=== PATIENT | female | born 1975 | race African-American/Black ===

== ENCOUNTER 2022-07-01 15:35 | Outpatient (CLI) | payer OTHER, SELFPAY ==
--- NOTE | ~2022-07-01 | MM_ITS ---
EXAMINATION: MM screening [facility] w jose HISTORY: Screening mammogram TECHNIQUE: Craniocaudal and mediolateral oblique 3-D tomosynthesis images were obtained and synthetic 2-D images were generated. CAD analysis was submitted and interpreted. COMPARISON: 02/13/2019 BREAST PARENCHYMAL COMPOSITION: There are scattered areas of fibroglandular density. FINDINGS: There is no suspicious mass, calcification, or architectural distortion to suggest malignan cy in either breast. There has been no suspicious interval change. IMPRESSION: 1. No mammographic evidence of malignancy. 2. Recommend routine screening mammography in one year. BI-RADS Category 1: Negative Reviewed, dictated and finalized at location A.
== END 2022-07-01 15:36 | disposition home or self-care (01) ==
LOC: ANHIMG 15:41
PROVIDERS: PCP Internal Medicine; Visit Provider Nurse Practitioner
DX: Z12.31 Encounter for screening mammogram for malignant neoplasm of breast (principal)
CPT/HCPCS: 77063; 77067

== ENCOUNTER 2024-02-01 13:30 | Emergency (ER) | payer OTHER, SELFPAY ==
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
[2024-02-01 13:28] VITALS: BP 180/98; PULSE 89; RESP 20; TEMP 36.6; O2SAT 96
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
== END 2024-02-01 15:00 | disposition home or self-care (01) ==
PROVIDERS: Emergency Provider Emergency Medicine
DX: S16.1XXA Strain of muscle, fascia and tendon at neck level, initial encounter (principal); S29.9XXA Unspecified injury of thorax, initial encounter; R93.7 Abnormal findings on diagnostic imaging of other parts of musculoskeletal system; V43.52XA Car driver injured in collision with other type car in traffic accident, initial encounter
CPT/HCPCS: 72125; 72128; 99284

== ENCOUNTER 2024-11-19 07:37 | Outpatient (CLI) | payer OTHER, SELFPAY ==
--- NOTE | ~2024-11-19 | MM_ITS ---
EXAMINATION: MM screening harley BI w jose HISTORY: Screening TECHNIQUE: Craniocaudal and mediolateral oblique 3-D tomosynthesis images were obtained and synthetic 2-D images were generated. CAD analysis was submitted and interpreted. COMPARISON: Comparison to multiple prior studies sequentially, with oldest reviewed study dated 02/13. BREAST PARENCHYMAL COMPOSITION: Not Dense: The breasts are almost entirely fatty. FINDINGS: There is no evidence of suspicious mass, calcification, or architectural distortion to sugg est malignancy in either breast. There has been no suspicious interval change. IMPRESSION: 1. No mammographic evidence of malignancy. 2. Recommend routine screening mammography in one year. BI-RADS Category 1: Negative Reviewed, dictated and finalized at location B. 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
--- OUTSIDE RECORDS SUMMARY | 2024-11-19 07:45 | XMS_ITS | Clinical Summary ---
Author Organization [facility] Address [address] [place] [address] Care Team Providers Care Cut In Worker Name Role Phone Janey Weathers MD Primary Care Provider + Source Comments [facility],non-owned Affiliates and Associated Physician Practices is amultiple site organization consisting of ambulatory clinics and hospital sitesin [place], [place], [place] and [place]. This disclosure is being madepursuant to the Care Everywhere program and may not contain all information available regarding this patient. Last updated 18.[facility] [employer] Allergies Active Allergy Reactions Criticality Noted Date Comments Lisinopril Swelling,Other 02/09/2019 Swelling of lips, tongue and ear. Medications * Be aware that medications may not be up to date on this document. Alwaysverify current medications with the patient. Medication Sig Dispensed Refills Start Date End Date Status metroNIDAZOLE vaginal (METROGEL - VAGINAL) 0.75 % vaginal gel Apply to affected area once as needed 3 01/04/2019 Active amLODIPine (NORVASC) 5 MG tablet Take 1 (one) tablet by mouth once daily 3 03/09/2019 Active calcium carbonate-vitamin D 600-400 MG-UNIT tablet Calcium with Vitamin D 600 mg (1,500 mg)-400 unit tablet Take 1 tablet twice a day by oral route. Active Multiple Vitamin (DAILY-MONICA MULTIVITAMIN) TABS Take 1 tablet by mouth once daily 11/20/2020 Active SLYND 4 MG TABS tablet Take 1 (one) tablet by mouth once daily 12/28/2020 Active hydroquinone (LUSTRA; ELDOQUIN) 4 % creamIndications:Post- inflammatory hyperpigmentation APPLY TO DARK SPOTS TWICE DAILY FOR NO MORE THAN 8 WEEKS, THEN 8 WEEKS OFF 28.35 g 12/25/2021 Active Additional Information Patient not taking.Reported on 07/21/2024 metroNIDAZOLE (Flagyl) 500 MG tablet TAKE 1 TABLET BY MOUTH EVERY 12 HOURS FOR 7 DAYS 04/22/2022 Active Cholecalciferol (Vitamin D3) 25 MCG (1000 UT) Take 1 (one) capsule by mouth once daily 04/23/2022 Active Multiple Vitamins-Minerals (Multivitamin Adults) TABS Take 1 tablet by mouth once daily 07/23/2022 Active fluocinolone-hydroquin one-tretinoin (Tri-Estephania) 0.01-4-0.05 % creamIndications:Post- inflammatory hyperpigmentation Apply to affected area nightly for up to 9 months of the year. 30 DS 30 g 3 08/14/2022 Active doxycycline monohydrate 100 MG capsuleIndications:Acn e vulgaris TAKE 1 CAPSULE BY MOUTH EVERY 12 HOURS 60 capsule 4 10/16/2022 Active Additional Information Patient not taking.Reported on 07/21/2024 tretinoin (Retin-A) 0.1 % creamIndications:Acne vulgaris APPLY PEA SIZED AMOUNT TOPICALLY TO FACE AT NIGHT 45 g 3 11/01/2022 Active Additional Information Patient not taking.Reported on 07/21/2024 clindamycin (Cleocin T) 1 % solution APPLY THIN LAYER TOPICALLY TO THE AFFECTED AREA TWICE DAILY 01/26/2024 Active tazarotene (Tazorac) 0.1 % creamIndications:Acne vulgaris Pea sized amount to entire face at night. 30 days supply. 30 g 5 02/11/2024 Active norethindrone 0.35 MG tablet Take 1 tablet every day by oral route. 07/21/2024 Active azelaic acid (Finacea) 15 % gelIndications:Acne vulgaris Apply to dark spots in am 50 g 5 07/21/2024 Active clindamycin (Cleocin) 1 % lotionIndications:Acne vulgaris Apply to affected area on face in the morning. 30 day supply. 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 Smoker 02/09/2019 Macromastia 02/05/2019 Benign essential hypertension 02/05/2019 Excessive sweating 02/05/2019 Nicotine dependence 02/05/2019 Obesity with body mass index 30 or greater 02/05 Resolved Problems Problem Noted Date Diagnosed Date Resolved Date Acute lower urinary tract infection 05/08/2022 05/22/2022 Family History Medical History Relation Name Comments None Known Brother Hypertension Father None Known Maternal Aunt None Known Maternal Grandfather None Known Maternal Grandmother None Known Maternal Uncle Hypertension Mother None Known Other None Known Paternal Aunt None Known Paternal Grandfather None Known Paternal Grandmother None Known Paternal Uncle None Known Sister Asthma Neg Hx CVA Neg Hx Cancer - Breast Neg Hx Cancer - Other Neg Hx Cancer - Skin, Melanoma Neg Hx Cancer - Skin, Non Melanoma Neg Hx Eczema Neg Hx Hemophilia Neg Hx Psoriasis Neg Hx Relation Name Status Comments Brother Father Alive Maternal Aunt Maternal Grandfather Maternal Grandmother Maternal Uncle Mother Alive Other Paternal Aunt Paternal Grandfather Paternal Grandmother Paternal Uncle Sister Social History Tobacco Use Types Packs/Day Years Used Date Smoking Tobacco: Every Day Cigarettes Smokeless Tobacco: Never Tobacco Cessation:Ready to Q uit: No; Counseling Given: Yes Alcohol Use Standard Drinks/Week Comments Yes 0 (1 standard drink = 0.6 oz pur e alcohol) Socially Sex and Gender Information Value Date Recorded Sex Assigned at Not on file Gender Identity Not on file Sexual Orientation Not on file Last Filed Vital Signs Vital Sign Reading Time Taken Comments Blood Pressure 168/85 02/09/2019 11:45 AM CDT Pulse 85 02/09/2019 11:45 AM CDT Temperature 37.1 C (98.7 F) 02/09/2019 11:45 AM CDT Respiratory Rate - - Oxygen Saturation 98% 02/09/2019 11:45 AM CDT Inhaled Oxygen Concentration - - Weight 82.8 kg (182 lb 9.6 oz) 02/09/2019 11:45 AM CDT Height 161.3 cm (5' 3.5 ) 02/09/2019 11:45 AM CD T Body Mass Index 31.84 02/09/2019 11:45 AM CDT Plan of Treatment Upcoming Encounters Date Type Department Care Team (Late st Contact Info) Description 05/25/2025 2:50 PM CDT [facility] [address] [place] [address], [place] [id number] Caryn Wheeler MD [facility] [address] [place] [id number] Health Maintenance Due Date Last Done Comments COLOGUARD (AGES 45-75) - COLON CA SCREENING 1976 COLON MONITORING 1976 COLONOSCOPY - COLON CA SCREENING 1976 CT COLONOGRAPHY - COLON CA SCREENING 1976 Colorectal Cancer Screening 1976 FIT - COLON CA SCREENING 1976 FLEX SIG - COLON CA SCREENING 1976 LIPID TESTING 1976 MAMMOGRAM 1976 HIV SCREENING 1991 HEPATITIS C SCREENING 11/17/1994 DTAP/TDAP/TD VACCINES (1 - Tdap) 1995 HEPATITIS B VACCINE (1 of 3 - 19+ 3-dose series) 1995 PNEUMOCOCCAL VACCINE (1 of 2 - PCV) 1995 COVID-19 VACCINE (1 - season) 2024 INFLUENZA VACCINE (#1) 2024 09/07/2014 DEPRESSION SCREENING 09/29/2024 ZOSTER VACCINE (1 of 2) 2026 PAP SMEAR 11/25/2026 11/25/2023, 09/0 02/2022, 04/16/2022, Additional history exists HIB VACCINE Aged Out No longer eligi ble based on patient's age to complete this topic HPV VACCINE Aged Out No longer eligi ble based on patient's age to complete this topic MENINGOCOCCAL (Group B) VACCINE Aged Out No longer eligible based on patient's age to complete this topic MENINGOCOCCAL VACCINE Aged Out No andrés michelle eligible based on patient's age to complete this topic Insurance Payer Benefit Plan / Group Subscriber ID Effective Dates Phone Address Type everyArt OPEN ACCESS HMO [id number] 06/29/2024-Pre sent [id number] [place] [address] [facility] MEDICAID [id number] Effective for all dates ATTN CLAIMS DEPARTMENT [address] [place] [address] Medicaid Managed Care [facility] MEDICAID [id number] Effective for all dates ATT[employer] CLAIMS DEPARTMENT [address] [place] [address] Medicaid Managed Care [facility] MEDICAID [id number] Effective for all dates ATTN CLAIMS DEPARTMENT [address] [place] [address] Medicaid Managed Care [facility] MEDICAID [id number] Effective for all dates ATTN CLAIMS DEPARTMENT [address] [place] [address] Medicaid Managed Care [facility] MEDICAID [id number] Effective for all dates ATTN CLAIMS DEPARTMENT [address] [place] [address] Medicaid Managed Care [facility] MEDICAID [id number] Effective for all dates ATTN CLAIMS DEPARTMENT [address] [place] [address] Medicaid Managed Care [facility] MEDICAID [id number] Effective for all dates ATTN CLAIMS DEPARTMENT [address] [place] [address] Medicaid Managed Care [facility] MEDICAID [id number] Effective for all dates ATTN CLAIMS DEPARTMENT [address] [place] [address] Medicaid Managed Care [facility] MEDICAID [id number] Effective for all dates ATTN CLAIMS DEPARTMENT [address] [place] [address] Medicaid Managed Care [facility] MEDICAID [id number] Effective for all dates ATTN CLAIMS DEPARTMENT [address] [place] [address] Medicaid Managed Care [facility] MEDICAID [id number] Effective for all dates ATTN CLAIMS DEPARTMENT [address] [place] [address] Medicaid Managed Care [facility] MEDICAID [id number] Effective for all dates ATTN CLAIMS DEPARTMENT [address] [place] [address] Medicaid Managed Care [facility] MEDICAID [id number] Effective for all dates ATTN CLAIMS DEPARTMENT [address] [place] [address] Medicaid Managed Care [facility] MEDICAID [id number] Effective for all dates ATTN CLAIMS DEPARTMENT [address] [place] [address] Medicaid Managed Care [facility] PL[facility] MEDICAID [id number] Effective for all dates ATTN CLAIMS DEPARTMENT [address] [place] [address] Medicaid Managed Care [facility] MEDICAID [id number] Effective for all dates ATTN CLAIMS DEPARTMENT [address] [place] [address] Medicaid Managed Care [facility] MEDICAID [id number] Effective for all dates ATTN CLAIMS DEPARTMENT [address] [place] [address] Medicaid Managed Care [facility] MEDICAID [id number] Effective for all dates ATTN CLAIMS DEPARTMENT [address] [place] [address] Medicaid Managed Care [facility] MEDICAID [id number] Effective for all dates ATTN CLAIMS DEPARTMENT [address] [place] [address] Medicaid Managed Care [facility] MEDICAID [id number] Effective for all dates ATTN CLAIMS DEPARTMENT [address] [place] [address] Medicaid Managed Care [facility] [place] [place] [facility] MEDICAID [id number] Effective for all dates ATTN CLAIMS DEPARTMENT [address] [place] [address] Medicaid Managed Care [facility] MEDICAID [id number] Effective for all dates ATTN CLAIMS DEPARTMENT [address] [place] [address] Medicaid Managed Care [facility] MEDICAID [id number] Effective for all dates ATT[employer] CLAIMS DEPARTMENT [address] [place] [address] Medicaid Managed Care [facility] MEDICAID [id number] Effective for all dates ATTN CLAIMS DEPARTMENT [address] [place] [address] Medicaid Managed Care [facility] MEDICAID [id number] Effective for all dates ATTN CLAIMS DEPARTMENT [address] [place] [address] Medicaid Managed Care [facility] MEDICAID [id number] Effective for all dates ATTN CLAIMS DEPARTMENT [address] [place] [address] Medicaid Managed Care [facility] MEDICAID [id number] Effective for all dates ATTN CLAIMS DEPARTMENT [address] [place] [address] Medicaid Managed Care [facility] MEDICAID [id number] Effective for all dates ATTN CLAIMS DEPARTMENT [address] [place] [address] Medicaid Managed Care [facility] MEDICAID [id number] Effective for all dates ATTN CLAIMS DEPARTMENT [address] [place] [address] Medicaid Managed Care [facility] MEDICAID [id number] Effective for all dates ATTN CLAIMS DEPARTMENT [address] [place] [address] Medicaid Managed Care [facility] MEDICAID [id number] Effective for all dates ATTN CLAIMS DEPARTMENT [address] [place] [address] Medicaid Managed Care [facility] MEDICAID [id number] Effective for all dates ATTN CLAIMS DEPARTMENT [address] [place] [address] Medicaid Managed Care [facility] MEDICAID [id number] Effective for all dates ATTN CLAIMS DEPARTMENT [address] [place] [address] Medicaid Managed Care [facility] MEDICAID [id number] Effective for all dates ATTN CLAIMS DEPARTMENT [address] [place] [address] Medicaid Managed Care [facility] MEDICAID [id number] Effective for all dates ATTN CLAIMS DEPARTMENT [address] [place] [address] Medicaid Managed Care [facility] MEDICAID [id number] Effective for all dates ATTN CLAIMS DEPARTMENT [address] [place] [address] Medicaid Managed Care [facility] MEDICAID [id number] Effective for all dates ATT[employer] CLAIMS DEPARTMENT 1 [address], [address] [place] [address] Medicaid Managed Care [facility] MEDICAID [id number] Effective for all dates ATTN CLAIMS DEPARTMENT 1 [facility] [address], [address] [place] [address] Medicaid Managed Care [facility] MEDICAID [id number] Effective for all dates ATTN CLAIMS DEPARTMENT 1 [facility] MARTI[address], [address] [place] [address] Medicaid Managed Care [facility] MEDICAID [id number] Effective for all dates ATTN CLAIMS DEPARTMENT 1 [facility] [address], [address] [place] [address] Medicaid Managed Care [facility] MEDICAID [id number] Effective for all dates ATTN CLAIMS DEPARTMENT 1 [facility] REGGIEI[address], [address] [place] [address] Medicaid Managed Care [facility] MEDICAID [id number] Effective for all dates ATTN CLAIMS DEPARTMENT 1 [facility] [address], [address] [place] [address] Medicaid Managed Care [facility] MEDICAID [id number] Effective for all dates ATTN CLAIMS DEPARTMENT 1 [facility], [address] [place] [address] Medicaid Managed Care [facility] MEDICAID [id number] Effective for all dates ATTN CLAIMS DEPARTMENT 1 [facility], [address] [place] [address] [facility] MEDICAID [id number] Effective for all dates ATTN CLAIMS DEPARTMENT 1 [facility], [address] [place] [address] Medicaid Managed Care [facility] MEDICAID [id number] Effective for all dates ATTN CLAIMS DEPARTMENT 1 [facility], [address] [place] [address] Medicaid Managed Care [facility] MEDICAID [id number] Effective for all dates ATTN CLAIMS DEPARTMENT 1 [facility], [address] [place] [address] Medicaid Managed Care [facility] MEDICAID [id number] Effective for all dates ATTN CLAIMS DEPARTMENT 1 [facility], [address] [place] [address] Medicaid Managed Care [facility] MEDICAID [id number] Effective for all dates ATTN CLAIMS DEPARTMENT 1 [facility], [address] [place] [address] Medicaid Managed Care [facility] MEDICAID [id number] Effective for all dates ATTN CLAIMS DEPARTMENT 1 [facility] [address], [address] [place] [address] Medicaid Managed Care [facility] MEDICAID [id number] Effective for all dates ATTN CLAIMS DEPARTMENT 1 [facility], [address] [place] [address] Medicaid Managed Care [facility] MEDICAID [id number] Effective for all dates ATTN CLAIMS DEPARTMENT 1 [facility], [address] [place] [address] Medicaid Managed Care [facility] MEDICAID [id number] Effective for all dates ATTN CLAIMS DEPARTMENT 1 [facility], [address] [place] [address] Medicaid Managed Care [facility] MEDICAID [id number] Effective for all dates ATTN CLAIMS DEPARTMENT 1 [facility], [address] [place] [address] [facility] MEDICAID [id number] Effective for all dates ATTN CLAIMS DEPARTMENT 1 [facility] [address], [address] [place] [address]aged [address] [facility] MEDICAID [id number] Effective for all dates ATTN CLAIMS DEPARTMENT 1 [facility] [address], [address] [place] [address] [facility] MEDICAID [id number] Effective for all dates ATTN CLAIMS DEPARTMENT 1 [facility] [address], [address] [place] [address] [facility] MEDICAID [id number] Effective for all dates ATTN CLAIMS DEPARTMENT 1 [facility] [address], [address] [place] [address] Medicaid Managed Care [facility] MEDICAID [id number] Effective for all dates ATTN CLAIMS DEPARTMENT 1 [facility] [address], [address] [place] [address] Medicaid Managed Care [facility] MEDICAID [id number] Effective for all dates ATTN CLAIMS DEPARTMENT 1 [facility], [address] [place] [address] Medicaid Managed Care [facility] MEDICAID [id number] Effective for all dates ATTN CLAIMS DEPARTMENT 1 [facility], [address] [place] [address] Medicaid Managed Care [facility] MEDICAID [id number] Effective for all dates ATTN CLAIMS DEPARTMENT 1 [facility], [address] [place] [address] [facility] MEDICAID [id number] Effective for all dates ATTN CLAIMS DEPARTMENT 1 [facility], [address] [place] [address] Medicaid Managed Care [facility] MEDICAID [id number] Effective for all dates ATTN CLAIMS DEPARTMENT 1 [facility], [address] [place] [address] [facility] MEDICAID [id number] Effective for all dates ATTN CLAIMS DEPARTMENT 1 [facility], [address] [place] [address] Medicaid Managed Care [facility] MEDICAID [id number] Effective for all dates ATTN CLAIMS DEPARTMENT 1 [facility], [address] [place] [address] [facility] MEDICAID [id number] Effective for all dates ATTN CLAIMS DEPARTMENT 1 [facility], [address] [place] [address] [facility] MEDICAID [id number] Effective for all dates ATTN CLAIMS DEPARTMENT 1 [facility] [address], [address] [place] [address] Medicaid Managed Care [facility] MEDICAID [id number] Effective for all dates ATTN CLAIMS DEPARTMENT 1 [facility] [place], [address] [place] [address] Medicaid Managed Care [facility] MEDICAID [id number] Effective for all dates ATTN CLAIMS DEPARTMENT 1 [facility], [address] [place] [address] Medicaid Managed Care [facility] MEDICAID [id number] Effective for all dates ATTN CLAIMS DEPARTMENT 1 [facility], [address] [place] [address] Medicaid Managed Care [facility] MEDICAID [id number] Effective for all dates ATTN CLAIMS DEPARTMENT 1 [facility] [address], [address] [place] [address] Medicaid Managed Care [facility] MEDICAID [id number] Effective for all dates ATTN CLAIMS DEPARTMENT 1 [facility], [address] [place] [address] Medicaid Managed Care [facility] MEDICAID [id number] Effective for all dates ATTN CLAIMS DEPARTMENT 1 [facility], [address] [place] [address] [facility] MEDICAID [id number] Effective for all dates ATTN CLAIMS DEPARTMENT 1 [facility], [address] [place] [address] Medicaid Managed Care [facility] MEDICAID [id number] Effective for all dates ATTN CLAIMS DEPARTMENT 1 [facility], [address] [place] [address] [facility] MEDICAID [id number] Effective for all dates ATTN CLAIMS DEPARTMENT 1 [facility], [address] [place] [address] Medicaid Managed Care [facility] MEDICAID [id number] Effective for all dates ATTN CLAIMS DEPARTMENT 1 [facility], [address] [place] [address] Medicaid Managed Care [facility] MEDICAID [id number] Effective for all dates ATTN CLAIMS DEPARTMENT 1 [facility], [address] [place] [address] Medicaid Managed Care [facility] MEDICAID [id number] Effective for all dates ATTN CLAIMS DEPARTMENT 1 [facility], [address] [place] [address] [facility] MEDICAID [id number] Effective for all dates ATTN CLAIMS DEPARTMENT 1 [facility], [address] [place] [address] [facility] MEDICAID [id number] Effective for all dates ATTN CLAIMS DEPARTMENT 1 [facility], [address] [place] [address] [facility] MEDICAID [id number] Effective for all dates ATTN CLAIMS DEPARTMENT 1 [facility], [address] [place] [address] [facility] MEDICAID [id number] Effective for all dates ATTN CLAIMS DEPARTMENT 1 [facility], [address] [place] [address] Medicaid [facility] Care [facility] MEDICAID [id number] Effective for all dates ATTN CLAIMS DEPARTMENT 1 [facility], [address] [place] [address] [facility] MEDICAID [id number] Effective for all dates ATTN CLAIMS DEPARTMENT 1 [facility], [address] [place] [address] [facility] MEDICAID [id number] Effective for all dates ATTN CLAIMS DEPARTMENT 1 [facility], [address] [place] [address] Medicaid [facility] Care [facility] MEDICAID [id number] Effective for all dates ATTN CLAIMS DEPARTMENT 1 [facility], [address] [place] [address] [facility] MEDICAID [id number] Effective for all dates ATTN CLAIMS DEPARTMENT 1 [facility], [address] [place] [address] Medicaid Managed Care [facility] MEDICAID [id number] Effective for all dates ATTN CLAIMS DEPARTMENT 1 [facility], [address] [place] [address] [facility] MEDICAID [id number] Effective for all dates ATTN CLAIMS DEPARTMENT 1 [facility], [address] [place] [address] [facility] MEDICAID [id number] Effective for all dates ATTN CLAIMS DEPARTMENT 1 [address], [address] [place] [address] [facility] MEDICAID [id number] Effective for all dates ATTN CLAIMS DEPARTMENT 1 [address], [address] [place] [address] Medicaid Managed Care [facility] MEDICAID [id number] Effective for all dates ATTN CLAIMS DEPARTMENT [address] [place] [place] [address] [facility] MEDICAID [id number] Effective for all dates ATTN CLAIMS DEPARTMENT [address], [place] [address] [place] [address] [facility] MEDICAID [id number] Effective for all dates ATTN CLAIMS DEPARTMENT [address], [facility] [address] [place] [address] Medicaid Managed Care Care Teams Cut In Worker Relationship Specialty Start Date End Date Janey Weathers MD PCP - General 08/06/16
--- OUTSIDE RECORDS SUMMARY | 2024-11-19 07:45 | XMS_ITS | Encounter Summary ---
Author Organization [facility] Address [address] [place] [address] Care Team Providers Care Shipping Clerk Name Role Phone Janey Weathers MD Primary Care Provider + Reason for Visit * Reason Onset Date Comments MEDICATION REFILL 10/07/2023 Encounter Details Date Type Department Care Team (Late st Contact Info) Description 10/07/2023 Telephone [facility] - General Dermatology [address], [address] [place] [address] Caryn Wheeler MD [address] [facility] [address] [place] [address] MEDICATION REFILL Social History Tobacco Use Types Packs/Day Years Used Date Smoking Tobacco: Every Day Cigarettes Smokeless Tobacco: Never Alcohol Use Standard Drinks/Week Comments Yes 0 (1 standard drink = 0.6 oz pur e alcohol) Socially Sex and Gender Information Value Date Recorded Sex Assigned at Not on file Gender Identity Not on file Sexual Orientation Not on file documented as of this encounter Progress Notes * Susie Katz - 04/07/2024 12:27 PM CDT Medication Prior Authorization: Medication: Tazorac 0.1% cream 30 grams Status: Approved 02/19/24 through 08/17/24 Submitted via: Cover My Meds (Aldana: [id number]) Insurance: [facility] (p: [phone]) (f: [phone]) Case/Reference number: ID: [id number] RX Card Billing Info: BIN: [id number] PCN: [id number] GROUP: [id number] ID: [id number] PA approval notice uploaded to media tab. Faxed approval to [facility] pharmacy. Susie Katz- Pharmacy Dental Ceramist Assistant (Dermatology) documented in this encounter Miscellaneous Notes * Telephone Encounter - Susie Katz - 02/19/2024 2:59 PM CDT PA submitted fornew start Tazarotene 0.1% cream 30 grams per 30 days [place] on decision. Aldana: [id number] Provider:[id number] Susie Katz ([place]) [facility] - Pharmacy Dental Ceramist Assistant * Telephone Encounter - Germán Anguiano - 10/09/2023 4:46 PM FENCE LABORER Left message for refill appointment: 02/11/24 at 3:50. E LABORER * Telephone Encounter - Sonali Pelletier - 10/08/2023 2:28 PM CST Per last refill request, patient needs an appointment for further refills Please schedule Sonali Pelletier E LABORER * Telephone Encounter - Hugh Blackmon - 10/07/2023 12:40 PM CST Pharmacy called in regards to medication tretinoin (Retin-A) 0.1 % cream for a refill request from the pt. Please assist and advise. E LABORER documented in this encounter Plan of Treatment Upcoming Encounters Date Type Department Care Team (Late st Contact Info) Description 05/25/2025 2:50 PM CDT Office Visit [facility] - Dermatology [address] [place] [address], [place] [address] Caryn Wheeler MD [address] [place] [address] [address] [place] [address] documented as of this encounter Visit Diagnoses Not on filedocumented in this encounter Care Teams Shipping Clerk Relationship Specialty Start Date End Date Janey Weathers MD PCP - General 08/06/16 documented as of this encounter
--- OUTSIDE RECORDS SUMMARY | 2024-11-19 07:45 | XMS_ITS | Patient Health Summary ---
Author Organization [facility] Address [address] [place] [address] Care Team Providers Care Lens Shaper Grinder Name Role Phone Janey Weathers MD Primary Care Provider + Note from [facility],non-owned Affiliates and Associated Physician Practices is amultiple site organization consisting of ambulatory clinics and hospital sitesin [place], [place], [place] and [place]. This disclosure is being madepursuant to the Care Everywhere program and may not contain all information available regarding this patient. Last updated 18.[facility] Allergies * Lisinopril(Swelling,Other) Medications * Be aware that medications may not be up to date on this document. Alwaysverify current medications with the patient. * metroNIDAZOLE vaginal (METROGEL - VAGINAL) 0.75 % vaginal gel(Started 01/04/2019) Apply to affected area once as needed 3 refills left * amLODIPine (NORVASC) 5 MG tablet(Started 03/09/2019) Take 1 (one) tablet by mouth once daily 3 refills left * calcium carbonate-vitamin D 600-400 MG-UNIT tablet Calcium with Vitamin D 600 mg (1,500 mg)-400 unit tablet Take 1 tablet twice a day by oral route. * Multiple Vitamin (DAILY-MONICA MULTIVITAMIN) TABS(Started 11/20/2020) Take 1 tablet by mouth once daily * SLYND 4 MG TABS tablet(Started 12/28/2020) Take 1 (one) tablet by mouth once daily * hydroquinone (LUSTRA; ELDOQUIN) 4 % cream(Started 12/25/2021) APPLY TO DARK SPOTS TWICE DAILY FOR NO MORE THAN 8 WEEKS, THEN 8 WEEKS OFF * metroNIDAZOLE (Flagyl) 500 MG tablet(Started 04/22/2022) TAKE 1 TABLET BY MOUTH EVERY 12 HOURS FOR 7 DAYS * Cholecalciferol (Vitamin D3) 25 MCG (1000 UT)(Started 04/23/2022) Take 1 (one) capsule by mouth once daily * Multiple Vitamins-Minerals (Multivitamin Adults) TABS(Started 07/23/2022) Take 1 tablet by mouth once daily * mgcytzdptaxk-osaoeuufuabb-ujwqbtwwq (Tri-Estephania) 0.01-4-0.05 % cream(Started 08/14/2022) Apply to affected area nightly for up to 9 months of the year. 30 DS 3 refills by 08/14/2023 * doxycycline monohydrate 100 MG capsule(Started 10/16/2022) TAKE 1 CAPSULE BY MOUTH EVERY 12 HOURS 4 refills by 10/16/2023 * tretinoin (Retin-A) 0.1 % cream(Started 11/01/2022) APPLY PEA SIZED AMOUNT TOPICALLY TO FACE AT NIGHT 3 refills by 11/01/2023 * clindamycin (Cleocin T) 1 % solution(Started 01/26/2024) APPLY THIN LAYER TOPICALLY TO THE AFFECTED AREA TWICE DAILY * tazarotene (Tazorac) 0.1 % cream(Started 02/11/2024) Pea sized amount to entire face at night. 30 days supply. 5 refills by 02/10/2025 * norethindrone 0.35 MG tablet(Started 07/21/2024) Take 1 tablet every day by oral route. * azelaic acid (Finacea) 15 % gel(Started 07/21/2024) Apply to dark spots in am 5 refills by 07/21/2025 * clindamycin (Cleocin) 1 % lotion(Started 07/21/2024) Apply to affected area on face in the morning. 30 day supply. 5 refills by 07/21/2025 * spironolactone (Aldactone) 100 MG tablet(Started 07/21/2024) Take One and a Half tablets (150mg daily) BY MOUTH EVERY DAY 3 refills by 07/21/2025 Active Problems Problem Noted Date Diagnosed Date [...] Acute lower urinary tract infection 05/08/2022 05/22/2022 Social History Tobacco Use Types Packs/Day Years [...] Mass Index 31.84 02/09/2019 11:45 AM CDT Care Teams Lens Shaper Grinder Relationship Specialty Start Date End Date Janey Weathers MD PCP - General 08/06/16
--- OUTSIDE RECORDS SUMMARY | 2024-11-19 07:45 | XMS_ITS | Referral Summary ---
Author Organization [facility] Address [address] [place] [address] Care Team Providers Care Coper Hand Name Role Phone Janey Weathers MD Primary Care Provider + Source Comments [facility],non-owned Affiliates and Associated Physician Practices is amultiple site organization consisting of ambulatory clinics and hospital sitesin [place], [place]. This disclosure is being madepursuant to the Care Everywhere program and may not contain all information available regarding this patient. Last updated 18.[facility] [employer] Allergies Active Allergy Reactions Criticality Noted Date [...] Office Visit [facility] - Dermatology [address] [place] [address], [facility] [place] [id number] Caryn Wheeler MD [address] [place] [address] [address] [place] [address] Insurance Payer Benefit Plan / Group Subscriber ID Effective Dates Phone Address Type [employer] HEALTHLINK OPEN ACCESS O [id number] 06/29/2024-Pre sent [address] [place] [address] O [facility] MEDICAID [id number] Effective for all dates [employer] CLAIMS DEPARTMENT [address] [place] [address] Medicaid Managed Care [facility] MEDICAID [id number] Effective for all dates ATT[employer] CLAIMS DEPARTMENT [address] [place] [address] Medicaid Managed Care [facility] MEDICAID [id number] Effective for all dates ATT[employer] CLAIMS DEPARTMENT [address] [place] [address] Medicaid Managed Care [facility] MEDICAID [id number] Effective for all dates ATT[employer] CLAIMS DEPARTMENT [address] [place] [address] Medicaid Managed Care [facility] MEDICAID [id number] Effective for all dates ATT[employer] CLAIMS DEPARTMENT [address] [place] [address] Medicaid Managed Care [facility] MEDICAID [id number] Effective for all dates ATT[employer] CLAIMS DEPARTMENT [address] [place] [address] Medicaid Managed Care [facility] MEDICAID [id number] Effective for all dates ATTN CLAIMS DEPARTMENT [address] [place] [address] Medicaid Managed Care [facility] MEDICAID [id number] Effective for all dates ATTN CLAIMS DEPARTMENT [address] [place] [address] Medicaid Managed Care [facility] MEDICAID [id number] Effective for all dates ATTN CLAIMS DEPARTMENT [address] [place] [address] Medicaid Managed Care [facility] MEDICAID [id number] Effective for all dates ATT[employer] CLAIMS DEPARTMENT [address] [place] [address] Medicaid Managed Care [facility] MEDICAID [id number] Effective for all dates ATTN CLAIMS DEPARTMENT [address] [place] [address] Medicaid Managed Care [facility] MEDICAID [id number] Effective for all dates ATTN CLAIMS DEPARTMENT [address] [place] [address] Medicaid Managed Care [facility] MEDICAID [id number] Effective for all dates ATTN CLAIMS DEPARTMENT [address] [place] [address] Medicaid Managed Care [facility] MEDICAID [id number] Effective for all dates ATTN CLAIMS DEPARTMENT [address] [place] [address] Medicaid Managed Care [facility] MEDICAID [id number] Effective for all dates ATTN CLAIMS DEPARTMENT [address] [place] [address] Medicaid Managed Care [facility] MEDICAID [id number] Effective for all dates ATTN CLAIMS DEPARTMENT [address] [place] [address] Medicaid Managed Care [facility] MEDICAID [id number] Effective for all dates ATTN CLAIMS DEPARTMENT [address] [place] [address] Medicaid Managed Care [facility] MEDICAID [id number] Effective for all dates ATTN CLAIMS DEPARTMENT [address] [place] [address] Medicaid Managed Care [facility] MEDICAID [id number] Effective for all dates ATTN CLAIMS DEPARTMENT [address] [place] [address] Medicaid Managed Care [facility] MEDICAID [id number] Effective for all dates ATT[employer] CLAIMS DEPARTMENT [address] [place] [address] Medicaid Managed Care [facility] MEDICAID [id number] Effective for all dates ATTN CLAIMS DEPARTMENT [address] [place] [address] Medicaid Managed Care [facility] MEDICAID [id number] Effective for all dates ATTN CLAIMS DEPARTMENT [address] [place] [address] Medicaid Managed Care [facility] MEDICAID [id number] Effective for all dates ATTN CLAIMS DEPARTMENT [address] [place] [address] Medicaid Managed Care [facility] MEDICAID [id number] Effective for all dates ATTN CLAIMS DEPARTMENT [address] [place] [address] Medicaid Managed Care [facility] MEDICAID [id number] Effective for all dates ATTN CLAIMS DEPARTMENT [address] [place] [address] Medicaid Managed Care [facility] MEDICAID [id number] Effective for all dates ATTN CLAIMS DEPARTMENT [address] [place] [address] Medicaid Managed Care [facility] MEDICAID [id number] Effective for all dates ATTN CLAIMS DEPARTMENT [address] [place] [address] Medicaid Managed Care [facility] MEDICAID [id number] Effective for all dates ATTN CLAIMS DEPARTMENT [address] [place] [address] Medicaid Managed Care [facility] MEDICAID [id number] Effective for all dates ATTN CLAIMS DEPARTMENT [address] [place] [address] Medicaid Managed Care [facility] MEDICAID [id number] Effective for all dates ATTN CLAIMS DEPARTMENT [address] [place] [address] Medicaid Managed Care [facility] [place] [facility] MEDICAID [id number] Effective for all dates ATTN CLAIMS DEPARTMENT [address] [place] [address] Medicaid Managed Care [facility] MEDICAID [id number] Effective for all dates ATTN CLAIMS DEPARTMENT [address] [place] [address] Medicaid Managed Care [facility] MEDICAID [id number] Effective for all dates ATTN CLAIMS DEPARTMENT [address] [place] [address] Medicaid Managed Care [facility] MEDICAID [id number] Effective for all dates ATTN CLAIMS DEPARTMENT [address] [place] [address] Medicaid Managed Care [facility] MEDICAID [id number] Effective for all dates ATTN CLAIMS DEPARTMENT [address] [place] [address] Medicaid Managed Care [facility] MEDICAID [id number] Effective for all dates ATTN CLAIMS DEPARTMENT [address] [place] [address] Medicaid Managed Care [facility] MEDICAID [id number] Effective for all dates ATTN CLAIMS DEPARTMENT 1 [facility] [address] [place] [address] Medicaid Managed Care [facility] MEDICAID [id number] Effective for all dates ATTN CLAIMS DEPARTMENT 1 [facility], [address] [place] [address] Medicaid Managed Care [facility] MEDICAID [id number] Effective for all dates ATTN CLAIMS DEPARTMENT 1 [facility], [address] [place] [address] Medicaid Managed Care [facility] MEDICAID [id number] Effective for all dates ATTN CLAIMS DEPARTMENT 1 [facility] [address], [address] [place] [address] Medicaid Managed Care [facility] MEDICAID [id number] Effective for all dates ATTN CLAIMS DEPARTMENT 1 [facility], [address] [place] [address] Medicaid Managed Care [facility] MEDICAID [id number] Effective for all dates ATTN CLAIMS DEPARTMENT 1 [facility], [address] [place] [address] Medicaid Managed Care [facility] MEDICAID [id number] Effective for all dates ATTN CLAIMS DEPARTMENT 1 [facility], [address] [place] [address] Medicaid Managed Care [facility] MEDICAID [id number] Effective for all dates ATTN CLAIMS DEPARTMENT 1 [facility], [address] [place] [address] Medicaid Managed Care [facility] MEDICAID [id number] Effective for all dates ATTN CLAIMS DEPARTMENT 1 [facility], [address] [place] [address] Medicaid Managed Care [facility] MEDICAID [id number] Effective for all dates ATTN CLAIMS DEPARTMENT 1 [facility], [address] [place] [address] Medicaid Managed Care [facility] MEDICAID [id number] Effective for all dates ATTN CLAIMS DEPARTMENT 1 [facility], [address] [place] [address] Medicaid Managed Care [facility] MEDICAID [id number] Effective for all dates ATTN CLAIMS DEPARTMENT 1 [facility], [address] [place] [address] Medicaid Managed Care [facility] MEDICAID [id number] Effective for all dates ATTN CLAIMS DEPARTMENT 1 [facility], [address] [place] [address] Medicaid Managed Care [facility] MEDICAID [id number] Effective for all dates ATTN CLAIMS DEPARTMENT 1 [facility], [address] [place] [address] Medicaid Managed Care [facility] MEDICAID [id number] Effective for all dates ATTN CLAIMS DEPARTMENT 1 [facility], [address] [place] [address] Medicaid Managed Care [facility] MEDICAID [id number] Effective for all dates ATTN CLAIMS DEPARTMENT 1 [facility], [address] [place] [address] Medicaid Managed Care [facility] MEDICAID [id number] Effective for all dates ATTN CLAIMS DEPARTMENT 1 [facility], [address] [place] [address] Medicaid Managed Care [facility] MEDICAID [id number] Effective for all dates ATTN CLAIMS DEPARTMENT 1 [facility], [address] [place] [address] Medicaid Managed Care [facility] MEDICAID [id number] Effective for all dates ATTN CLAIMS DEPARTMENT 1 [facility], [address] [place] [address] Medicaid Managed Care [facility] MEDICAID [id number] Effective for all dates ATTN CLAIMS DEPARTMENT 1 [facility], [address] [place] [address] Medicaid Managed Care [facility] MEDICAID [id number] Effective for all dates ATTN CLAIMS DEPARTMENT 1 [facility], [address] [place] [address] Medicaid Managed Care [facility] MEDICAID [id number] Effective for all dates ATTN CLAIMS DEPARTMENT 1 [facility], [address] [place] [address] Medicaid Managed Care [facility] MEDICAID [id number] Effective for all dates ATTN CLAIMS DEPARTMENT 1 [facility], [address] [place] [address] Medicaid Managed Care [facility] MEDICAID [id number] Effective for all dates ATTN CLAIMS DEPARTMENT 1 [facility], [address] [place] [address] Medicaid Managed Care [facility] MEDICAID [id number] Effective for all dates ATTN CLAIMS DEPARTMENT 1 [facility], [address] [place] [address] Medicaid Managed Care [facility] MEDICAID [id number] Effective for all dates ATTN CLAIMS DEPARTMENT 1 [facility], [address] [place] [address] Medicaid Managed Care [facility] MEDICAID [id number] Effective for all dates ATTN CLAIMS DEPARTMENT 1 [facility], [address] [place] [address] Medicaid Managed Care [facility] MEDICAID [id number] Effective for all dates ATTN CLAIMS DEPARTMENT 1 [facility], [address] [place] [address] Medicaid Managed Care [facility] MEDICAID [id number] Effective for all dates ATTN CLAIMS DEPARTMENT 1 [facility], [address] [place] [address] Medicaid Managed Care [facility] MEDICAID [id number] Effective for all dates ATTN CLAIMS DEPARTMENT 1 [facility], [address] [place] [address] Medicaid Managed Care [facility] MEDICAID [id number] Effective for all dates ATTN CLAIMS DEPARTMENT 1 [facility], [address] [place] [address] Medicaid Managed Care [facility] MEDICAID [id number] Effective for all dates ATTN CLAIMS DEPARTMENT 1 [facility], [address] [place] [address] Medicaid Managed Care [facility] MEDICAID [id number] Effective for all dates ATTN CLAIMS DEPARTMENT 1 [facility], [address] [place] [address] Medicaid Managed Care [facility] MEDICAID [id number] Effective for all dates ATTN CLAIMS DEPARTMENT 1 [facility], [address] [place] [address] Medicaid Managed Care [facility] MEDICAID [id number] Effective for all dates ATTN CLAIMS DEPARTMENT 1 [facility], [address] [place] [address] Medicaid Managed Care [facility] MEDICAID [id number] Effective for all dates ATTN CLAIMS DEPARTMENT 1 [facility], [address] [place] [address] Medicaid Managed Care [facility] MEDICAID [id number] Effective for all dates ATTN CLAIMS DEPARTMENT 1 [facility], [address] [place] [address] Medicaid Managed Care [facility] MEDICAID [id number] Effective for all dates ATTN CLAIMS DEPARTMENT 1 [facility], [address] [place] [address] Medicaid Managed Care [facility] MEDICAID [id number] Effective for all dates ATTN CLAIMS DEPARTMENT 1 [facility], [address] [place] [address] Medicaid Managed Care [facility] MEDICAID [id number] Effective for all dates ATTN CLAIMS DEPARTMENT 1 [facility], [address] [place] [address] Medicaid Managed Care [facility] MEDICAID [id number] Effective for all dates ATTN CLAIMS DEPARTMENT 1 [facility], [address] [place] [address] Medicaid Managed Care [facility] MEDICAID [id number] Effective for all dates ATTN CLAIMS DEPARTMENT 1 [facility], [address] [place] [address] Medicaid Managed Care [facility] MEDICAID [id number] Effective for all dates ATTN CLAIMS DEPARTMENT 1 [facility], [address] [place] [address] Medicaid Managed Care [facility] MEDICAID [id number] Effective for all dates ATTN CLAIMS DEPARTMENT 1 [facility], [address] [place] [address] Medicaid Managed Care [facility] MEDICAID [id number] Effective for all dates ATTN CLAIMS DEPARTMENT 1 [facility], [address] [place] [address] Medicaid Managed Care [facility] MEDICAID [id number] Effective for all dates ATTN CLAIMS DEPARTMENT 1 [facility], [address] [place] [address] Medicaid Managed Care [facility] MEDICAID [id number] Effective for all dates ATTN CLAIMS DEPARTMENT 1 [facility], [address] [place] [address] Medicaid Managed Care [facility] MEDICAID [id number] Effective for all dates ATTN CLAIMS DEPARTMENT 1 [facility], [address] [place] [address] Medicaid Managed Care [facility] MEDICAID [id number] Effective for all dates ATTN CLAIMS DEPARTMENT 1 [facility], [address] [place] [address] Medicaid Managed Care [facility] MEDICAID [id number] Effective for all dates ATTN CLAIMS DEPARTMENT 1 [facility], [address] [place] [address] Medicaid Managed Care [facility] MEDICAID [id number] Effective for all dates ATTN CLAIMS DEPARTMENT 1 [facility], [address] [place] [address] Medicaid Managed Care [facility] MEDICAID [id number] Effective for all dates ATTN CLAIMS DEPARTMENT 1 [facility], [address] [place] [address] Medicaid Managed Care [facility] MEDICAID [id number] Effective for all dates ATTN CLAIMS DEPARTMENT 1 [facility], [address] [place] [address] Medicaid Managed Care [facility] MEDICAID [id number] Effective for all dates ATTN CLAIMS DEPARTMENT 1 [facility], [address] [place] [address] Medicaid Managed Care [facility] MEDICAID [id number] Effective for all dates ATTN CLAIMS DEPARTMENT 1 [facility], [address] [place] [address] Medicaid Managed Care [facility] MEDICAID [id number] Effective for all dates ATTN CLAIMS DEPARTMENT 1 [facility], [address] [place] [address] Medicaid Managed Care [facility] MEDICAID [id number] Effective for all dates ATTN CLAIMS DEPARTMENT 1 [facility], [address] [place] [address] Medicaid Managed Care [facility] MEDICAID [id number] Effective for all dates ATTN CLAIMS DEPARTMENT 1 [facility], [address] [place] [address] Medicaid Managed Care [facility] MEDICAID [id number] Effective for all dates ATTN CLAIMS DEPARTMENT 1 [place] [facility] [place], [address] [place] [address] Medicaid Managed Care [facility] MEDICAID [id number] Effective for all dates ATTN CLAIMS DEPARTMENT 1 [place] [facility], [facility] [address] [place] [address] Medicaid Managed Care Care Teams Coper Hand Relationship Specialty Start Date End Date Janey Weathers MD PCP - General 08/06/16
--- OUTSIDE RECORDS SUMMARY | 2024-11-19 07:45 | XMS_ITS | Data Portability ---
Author Organization EDDA Tano HARMON Address [address] [facility] [place] [address] Assessment No assessment recorded. Plan of Treatment Reminders Order Date Submit Date Provider Last Modified By Organization Details Last Modified Time Details Appointments None recorded . Lab culture, urine 2020 021 [facility], [address] [place] [address], [address], [place], [address], 16:30:21 hepatiti s C Ab, signal-t o-cutoff , serum or plasma [address] [facility], [address], [place], [address], 1 12:34:39 HIV 1+2 AB + HIV 1 p24 Ag, qualitat jimi immunoas say, serum 2018 019 mayda [facility], [address], [place], [address], 12:34:39 CMP, serum or plasma 2018 019 [email or web address] [facility], [address], [place], [address], 9 16:48:12 CBC w/ auto diff 2018 019 [email or web address] [facility], [address], [place], [address], 0 09:49:25 urinalys is, complete [address] [facility], [address], [place], [address], 1 12:34:39 lipid panel, serum 2018 019 [facility], [address], [place], [address], 0 09:49:25 unlisted lab - TSH reflex to t4f 2018 019 mayda [facility], [address], [place], [address], 1 12:34:39 HbA1c (hemoglo bin A1c), blood 2018 019 [facility], [address], [place], [address], 0 09:49:25 urinalys is, dipstick 2015 016 [id number] [id number] In-Office Order, Internal Use Only DO Not Attach Compendium DO Not Attach Compendium, Do Not Delete/merge, [id number] 6 04:30:05 microalb umin, urine 2015 016 [email or web address] [id number] In-Office Order, Internal Use Only DO Not Attach Compendium DO Not Attach Compendium, Do Not Delete/merge, [id number] 6 04:30:27 culture, urine 2015 016 I[facility], [address], [address], [place], [address], 6 06:05:36 pregnanc y test, urine 2015 016 mayda In-Office Order, Internal Use Only DO Not Attach Compendium DO Not Attach Compendium, Do Not Delete/merge, [id number] 6 17:47:22 urinalys is, dipstick 2015 Sade ohara In-Office Order, Internal Use Only DO Not Attach Compendium DO Not Attach Compendium, Do Not Delete/merge, [id number] 6 17:47:22 dhea-sul fate, serum 2015 016 [facility], [address], [address], [place], [address], 6 08:27:11 testoste mechelle, total, serum 2015 016 [facility], [address], [address], [place], [address], 6 08:27:09 CBC w/ auto diff 2015 016 [facility], [address], [address], [place], [address], 6 08:27:08 CMP, serum or plasma 2015 016 [facility], [address], [address], [place], [address], 6 08:27:08 uric acid, serum or plasma 2015 016 [facility], [address], [address], [place], [address], 6 08:27:12 lipid panel, serum 2015 016 [facility], [address], [address], [place], [address], 6 08:27:09 HbA1c (hemoglo bin A1c), blood 2015 016 [facility], [address], [address], [place], [address], 6 08:27:10 TSH, serum or plasma 2015 016 [facility], [address] [facility] [address], [address], [place], [address], 6 08:27:11 bacteria l vaginosi s + vaginiti s panel, vaginal 2015 016 [facility], [address], [address], [place], [address], 6 06:01:54 HSV (1+2) DNA, qual, PCR, unspecif ied specimen 2015 016 [facility], [address], [place], [address], 6 06:01:55 culture, vaginal/ rectal, streptoc occus group B 2015 016 [facility], [address], [address], [place], [address], 6 06:01:55 pap, IG + HPV, cervical 2015 016 [facility], [address], [place], [address], 6 07:06:55 bacteria l vaginosi s + vaginiti s panel, vaginal [address] [facility], [address] [facility], [place], [address], 5 13:14:13 HSV (1+2) DNA, qual, PCR, unspecif ied specimen 2014 015 [facility], [address] [facility], [address], [place], [address], 5 13:14:13 pap, IG + HPV, cervical 2014 015 andrae [facility], [address] [facility], [address], [place], [address], 5 13:14:13 pregnanc y test, urine 2014 015 andrae In-Office Order, Internal Use Only DO Not Attach Compendium DO Not Attach Compendium, Do Not Delete/merge, [id number] 5 13:14:13 urinalys is, dipstick 2014 015 mayda In-Office Order, Internal Use Only DO Not Attach Compendium DO Not Attach Compendium, Do Not Delete/merge, [id number] 5 13:14:13 Referral plastic surgeon referral - Breast reductio n for back pain 2018 019 [facility], [address] [facility], [facility] [address], [place], [address], 9 15:24:41 physical therapy back referral - Please call patient to schedule appt. Louisa 2018 019 [facility], [address] [place], [address], 9 15:27:58 physical therapis t referral - likely 2/2 large breasts 2015 016 [facility], [address] [place], [address], 1 12:34:39 breast surgery referral - Please contact patient to schedule and send consult note. 2015 016 mayda Soriano MD, [address] [place], [address], 1 12:34:39 internal medicine referral 2015 Sade ohara Not available 6 17:48:41 Procedures None recorded . Surgeries None recorded . Imaging MAMMO, screenin g, bilatera l 2020 021 [facility] ([facility] Sched[facility]), [address] [place], [address], 1 08:32:54 XR, chest, 2 view 2018 019 [facility] ([facility] Call Scheduling), [address] [place], [address], 1 12:34:39 XR, thoracic spine 2018 019 [facility] ([facility] Call Scheduling), [address] [place], [address], 1 12:34:39 MAMMO, screenin g, bilatera l 2018 019 [facility], [address], [place], [address], 9 08:49:11 mammogra m, screenin g 2015 016 [facility] Add On Lab Orders, [address] [place], [address], 6 10:57:25 Medication Orders Macrobid 100 mg capsule 2020 021 [facility]3259, [address] [place], [address], 2 09:24:45 metronid azole 0.75 % (37.5 mg/5 gram) vaginal gel 2020 021 [facility]3259, [address] [place] [address], [address], 2 09:24:37 Slynd 4 mg (28) tablet 2020 021 [facility] #3259, [address] [place] [address], [address], 1 14:01:48 multivit thomas tablet 2020 021 [facility]3259, [address] [place] [address], [address], 2 09:24:41 Calcium with Vitamin D 600 mg-10 mcg (400 unit) tablet 2020 021 [facility] #3259, [address] [place] [address], [address], 2 09:24:24 amlodipi ne 5 mg tablet 2020 021 [facility], [address] [place] [address], [address], 1 14:04:20 bupropio n HCl SR 150 mg tablet,1 2 hr sustaine d-releas e 2018 019 [facility], [address] [place] [address], [address], 1 09:58:52 amlodipi ne 5 mg tablet 2018 019 [facility], [address] [place] [address], [address], 9 16:04:03 amlodipi ne 5 mg tablet 2015 016 [facility]acy #3259, [address] [place] [address], [address], 9 15:30:23 nicotine 14 mg/24 hr daily transder mal patch 2015 016 [facility]acy #3259, [address] [place] [address], [address], 1 10:00:09 nicotine 21 mg/24 hr daily transder mal patch 2015 016 [facility] #3259, [address] [place] [address], [address], 9 15:29:43 nicotine 7 mg/24 hr daily transder mal patch 2015 016 [facility] #3259, [address] [place] [address], [address], 9 15:29:46 Macrobid 100 mg capsule 2015 016 [facility]3259, [address] [place] [address], [address], 2 09:24:45 lisinopr il 20 mg-hydro chloroth iazide 12.5 mg tablet 2015 016 [facility] #3259, [address] [place] [address], [address], 9 15:30:20 simvasta tin 20 mg tablet 2015 016 [email or web address] [facility] #3259, [address] [place] [address], [address], 6 10:18:12 metronid azole 0.75 % (37.5 mg/5 gram) vaginal gel [facility] [address] [place], [address], 2 09:24:37 Xulane 150 mcg-35 mcg/24 hr transder mal patch 2015 [facility]16 [facility] [address] [place], [address], 6 10:47:31 calcium 600 mg (as carbonat e)-vitam in D3 20 mcg (800 unit) tablet 2015 016 [facility] [address] [place], [address], 6 10:47:57 Vitamin tablet 2015 016 [facility], [address] [place], [address], 6 10:47:53 Metrogel Vaginal 0.75 % (37.5 mg/5 gram) 2014 015 [facility]3259, [address] [place], [address], 2 09:24:37 Patient TargetsNo targets recorded. Patient Instructions Encounter Date Encounter Id Patient Instructions Last Modified By Organization Details Last Modified Time 02/14/2015 [id number] bacterial vaginosis: care instructions madelineerman Not available 02/25/2015 13:14:13 03/06/2016 [id number] bacterial vaginosis: care instructions mwasserman Not available 03/06/2016 17:47:22 learning about mood disorders [email or web address] Not available 03/06/2016 17:48:48 02/05/2019 [id number] abnormal sweating: care instructions oajao Not available 02/05/2019 16:04:03 Quitting Tobacco: Care Instructions oajao Not available 02/05/2019 16:04:03 learning about breast cancer screening oajao Not available 02/05/2019 16:04:03 high blood pressure: care instructions oajao Not available 02/05/2019 16:04:03 learning about high blood pressure oajao Not available 02/05/2019 16:04:03 body mass index: care instructions oajao Not available 02/05/2019 16:05:27 learning about healthy weight oajao Not available 02/05/2019 16:05:27 Labs [place] Tobacco Quitline Start Amlodipine Start Wellbutrin Plastics Xrays Folow up oajao Not available 02/05/2019 16:25:06 [place] Tobacco Quit[place] Bupropion, side effects were discussed in detail oajao Not available 02/05/2019 16:25:12 10/19/2020 [id number] Urinary Tract Infection (UTI) in Women: Care Instructions mwasserman Not available 10/19/2020 14:01:46 bacterial vaginosis: care instructions mwasserman Not available 10/19/2020 14:04:16 mammogram: about this test mwasserman Not available 10/19/2020 14:05:59 mammogram screening patient instructions mwasserman Not available 10/19/2020 14:05:59 high blood pressure: care instructions mwasserman Not available 10/19/2020 14:04:17 learning about high blood pressure mwasserman Not available 10/19/2020 14:04:16 Reason for Referral Internal Medicine Referral f or Hypertensive disorder Referring Physician: Rhett Recinos, COMPUTER OPERATIONS SPECIALIST, Encounter Date: 03/06/2016 Breast Surgery Referral for Macromastia Please contact patient to schedule and send consult note. Referring Physician: Virginia Graham, Family Medicine, Encounter Date: 07/29/2016 likely 2/2 large breasts Referring Physician: Virginia Graham Family Medicine, Encounter Date: 07/29/2016 Please call patient to samira Jasso Referring Physician: Solange King, Internal Medicine, Encounter Date: 02/05/2019 Plastic Surgeon Referral for Macromastia Breast reduction for back pain Breast reduction for back pain Referring Physician: Solange King, Internal Medicine, Encounter Date: 02/05/2019 Results Created Date Observation Date Name Description Value Unit Range Abnormal Flag Note LastModifiedBy Organization Detail LastModifiedTime 07/29/20 16 07/29/2016 micro album in, urine Microalbumin NORMAL Not Available In-Of fice Order Internal Use Only DO Not Attach Compendium DO Not Attach Compendium, Do Not Delete/merge, [id number] 07/29/2016 10:56:03 07/29/20 16 07/29/2016 urina lysis , dipst ick Leukocytes Negati ve Not Available In-Office Order Internal Use Only DO Not Attach Compendium DO Not Attach Compendium, Do Not Delete/merge, [id number] 07/29/2016 10:34:37 07/29/20 16 07/29/2016 urina lysis , dipst ick Nitrite negati ve Not Available In-Office Order Internal Use Only DO Not Attach Compendium DO Not Attach Compendium, Do Not Delete/merge, [id number] 07/29/2016 10:34:37 07/29/20 16 07/29/2016 urina lysis , dipst ick Urobilinogen .2 Not Available In-Of fice Order Internal Use Only DO Not Attach Compendium DO Not Attach Compendium, Do Not Delete/merge, [id number] 07/29/2016 10:34:37 07/29/20 16 07/29/2016 urina lysis , dipst ick Protein Negati ve Not Available In-Office Order Internal Use Only DO Not Attach Compendium DO Not Attach Compendium, Do Not Delete/merge, [id number] 07/29/2016 10:34:37 07/29/20 16 07/29/2016 urina lysis , dipst ick pH 6.0 Not Available In-Office Order Internal Use Only DO Not Attach Compendium DO Not Attach Compendium, Do Not Delete/merge, [id number] 07/29/2016 10:34:37 07/29/20 16 07/29/2016 urina lysis , dipst ick Blood Hemoly zed: Trace Not Available In-Office Order Internal Use Only DO Not Attach Compendium DO Not Attach Compendium, Do Not Delete/merge, [id number] 07/29/2016 10:34:37 07/29/20 16 07/29/2016 urina lysis , dipst ick Specific [place] 1.020 Not Available In-Off ice Order Internal Use Only DO Not Attach Compendium DO Not Attach Compendium, Do Not Delete/merge, [id number] 07/29/2016 10:34:37 07/29/20 16 07/29/2016 urina lysis , dipst ick Ketone Negati ve Not Available In-Office Order Internal Use Only DO Not Attach Compendium DO Not Attach Compendium, Do Not Delete/merge, 07/29/2016 10:34:37 07/29/20 16 07/29/2016 urina lysis , dipst ick Bilirubin Negati ve Not Available In-Office Order Internal Use Only DO Not Attach Compendium DO Not Attach Compendium, Do Not Delete/merge, 07/29/2016 10:34:37 07/29/20 16 07/29/2016 urina lysis , dipst ick Glucose Negati ve Not Available In-Office Order Internal Use Only DO Not Attach Compendium DO Not Attach Compendium, Do Not Delete/merge, 07/29/2016 10:34:37 07/29/20 16 07/29/2016 urina lysis , dipst ick Appearance Clear Not Available In-Offi ce Order Internal Use Only DO Not Attach Compendium DO Not Attach Compendium, Do Not Delete/merge, 07/29/2016 10:34:37 07/29/20 16 07/29/2016 urina lysis , dipst ick Color Dark Yellow Not Available In-Office Order Internal Use Only DO Not Attach Compendium DO Not Attach Compendium, Do Not Delete/merge, [id number] 07/29/2016 10:34:37 03/06/20 16 03/06/2016 urina lysis , dipst ick Leukocytes Negati ve Not Available In-Office Order Internal Use Only DO Not Attach Compendium DO Not Attach Compendium, Do Not Delete/merge, [id number] 03/06/2016 12:20:36 03/06/20 16 03/06/2016 urina lysis , dipst ick Nitrite positi ve Not Available In-Office Order Internal Use Only DO Not Attach Compendium DO Not Attach Compendium, Do Not Delete/merge, [id number] 03/06/2016 12:20:36 03/06/20 16 03/06/2016 urina lysis , dipst ick Urobilinogen 1 Not Available In-Of fice Order Internal Use Only DO Not Attach Compendium DO Not Attach Compendium, Do Not Delete/merge, 03/06/2016 12:20:36 03/06/20 16 03/06/2016 urina lysis , dipst ick Protein 100 Not Available In-Office Order Internal Use Only DO Not Attach Compendium DO Not Attach Compendium, Do Not Delete/merge, 03/06/2016 12:20:36 03/06/20 16 03/06/2016 urina lysis , dipst ick pH 6.5 Not Available In-Office Order Internal Use Only DO Not Attach Compendium DO Not Attach Compendium, Do Not Delete/merge, 03/06/2016 12:20:36 03/06/20 16 03/06/2016 urina lysis , dipst ick Blood Small Not Available In-Office Order Internal Use Only DO Not Attach Compendium DO Not Attach Compendium, Do Not Delete/merge, 03/06/2016 12:20:36 03/06/20 16 03/06/2016 urina lysis , dipst ick Specific [place] 1.030 Not Available In-Off ice Order Internal Use Only DO Not Attach Compendium DO Not Attach Compendium, Do Not Delete/merge, 03/06/2016 12:20:36 03/06/20 16 03/06/2016 urina lysis , dipst ick Ketone Trace Not Available In-Office Order Internal Use Only DO Not Attach Compendium DO Not Attach Compendium, Do Not Delete/merge, 03/06/2016 12:20:36 03/06/20 16 03/06/2016 urina lysis , dipst ick Bilirubin Small Not Available In-Offic e Order Internal Use Only DO Not Attach Compendium DO Not Attach Compendium, Do Not Delete/merge, 03/06/2016 12:20:36 03/06/20 16 03/06/2016 urina lysis , dipst ick Glucose Negati ve Not Available In-Office Order Internal Use Only DO Not Attach Compendium DO Not Attach Compendium, Do Not Delete/merge, 03/06/2016 12:20:36 03/06/20 16 03/06/2016 pregn mary test, urine HCG negati ve Not Available In-Office Order Internal Use Only DO Not Attach Compendium DO Not Attach Compendium, Do Not Delete/merge, 03/06/2016 12:20:35 02/15/20 15 02/14/2015 urina lysis , dipst ick Leukocytes Negati ve Not Available In-Office Order Internal Use Only DO Not Attach Compendium DO Not Attach Compendium, Do Not Delete/merge, 02/14/2015 10:37:42 02/15/20 15 02/14/2015 urina lysis , dipst ick Nitrite negati ve Not Available In-Office Order Internal Use Only DO Not Attach Compendium DO Not Attach Compendium, Do Not Delete/merge, 02/14/2015 10:37:42 02/15/20 15 02/14/2015 urina lysis , dipst ick Urobilinogen .2 Not Available In-Of fice Order Internal Use Only DO Not Attach Compendium DO Not Attach Compendium, Do Not Delete/merge, 02/14/2015 10:37:42 02/15/20 15 02/14/2015 urina lysis , dipst ick Protein Negati ve Not Available In-Office Order Internal Use Only DO Not Attach Compendium DO Not Attach Compendium, Do Not Delete/merge, 02/14/2015 10:37:42 02/15/20 15 02/14/2015 urina lysis , dipst ick pH 7.0 Not Available In-Office Order Internal Use Only DO Not Attach Compendium DO Not Attach Compendium, Do Not Delete/merge, 02/14/2015 10:37:42 02/15/2002/14/2015 urina lysis , dipst ick Blood Hemoly zed: Trace Not Available In-Office Order Internal Use Only DO Not Attach Compendium DO Not Attach Compendium, Do Not Delete/merge, 02/14/2015 10:37:42 02/15/2002/14/2015 urina lysis , dipst ick Specific [place] 1.025 Not Available In-Off ice Order Internal Use Only DO Not Attach Compendium DO Not Attach Compendium, Do Not Delete/merge, [id number] 02/14/2015 10:37:42 02/15/20 15 02/14/2015 urina lysis , dipst ick Ketone Negati ve Not Available In-Office Order Internal Use Only DO Not Attach Compendium DO Not Attach Compendium, Do Not Delete/merge, 02/14/2015 10:37:42 02/15/20 15 02/14/2015 urina lysis , dipst ick Bilirubin Negati ve Not Available In-Office Order Internal Use Only DO Not Attach Compendium DO Not Attach Compendium, Do Not Delete/merge, 02/14/2015 10:37:42 02/15/20 15 02/14/2015 urina lysis , dipst ick Glucose Negati ve Not Available In-Office Order Internal Use Only DO Not Attach Compendium DO Not Attach Compendium, Do Not Delete/merge, 02/14/2015 10:37:42 02/15/20 15 02/14/2015 pregn mary test, urine HCG negati ve Not Available In-Office Order Internal Use Only DO Not Attach Compendium DO Not Attach Compendium, Do Not Delete/merge, 02/14/2015 10:37:42 02/15/20 15 02/17/2015 pap, IG + HPV, cervi gera diagnosis: COMMEN T NEGAT JIMI FOR INTRA EPITH ELIAL LESIO N AND ELLE ORTEGA . Not Available [facility] ([facility]) [address] [facility], [place], [address], 02/18/2015 06:11:41 02/15/20 15 02/17/2015 pap, IG + HPV, cervi gera specimen adequacy: COMMEN T SATIS FACTO RY FOR EVALU ATION . ENDOC ERVIC AL AND/O R SQUAM OUS METAP LASTI C CELLS (ENDO CERVI GERA COMPO NENT) ARE PRESE NT. Not Available [facility] ([facility]) [address] [facility], [place], [address], 02/18/2015 06:11:41 02/15/20 15 02/17/2015 pap, IG + HPV, cervi gera clinician provided ICD9: ZELDA Worthington V72.3 1 ; ROUTI NE GYNEC OLOGI GERA EXAMI NATIO N Not Available [facility] ([facility]) [address] [place], [address], 02/18/2015 06:11:41 02/15/20 15 02/17/2015 pap, IG + HPV, cervi gera performed by: ZELDA MUNOZ , KIRSTY Worthington (ASCP ) Not Available [facility] ([facility]) [address] [place], [address], 02/18/2015 06:11:41 02/15/20 15 02/17/2015 pap, IG + HPV, cervi gera . . Not Available [facility] ([facility]) [address] [place], [address], 02/18/2015 06:11:41 02/15/20 15 02/17/2015 pap, IG + HPV, cervi gera note: ZELDA Worthington THE PAP SMEAR IS A SCREE ABILIO TEST DESIG BART TO AID IN THE DETEC TION OF SHAKEEL LIGNA NT AND MALIG NANT CONDI TIONS OF THE UTERI NE CERVI X. IT IS NOT A DIAGN OSTIC PROCE DURE AND SHOUL D NOT BE USED THE SOLE MEANS OF DETEC TING CERVI GERA CANCE R. BOTH FALSE -POSI TIVE AND FALSE -NEGA TIVE REPOR TS DO OCCUR . Not Available [facility] ([facility]) [address] [place], [address], 02/18/2015 06:11:41 02/15/20 15 02/17/2015 pap, IG + HPV, cervi gera test methodology: TNP THE THIN PREP( R) IMAGE R WAS UNABL E TO READ THIS SPECI MEN. THERE FORE A MANUA L REVIE W WAS PERFO RMED. Not Available [facility] ([facility]) [address] [place], [address], 02/18/2015 06:11:41 02/15/20 15 02/17/2015 pap, IG + HPV, cervi gera HPV aptima NEGATI VE negati ve THIS TEST DETEC TS FOURT EEN HIGH- RISK HPV TYPES (16/1 8/31/ 33/35 /39/4 5/ 51/52 /56/5 8/59/ 66/68 ) WITHO UT DIFFE JOHNTI ATION . Not Available [facility] ([facility]) [address] [facility], [place], [address], 02/18/2015 06:11:41 02/15/20 15 02/17/2015 bacte rial vagin osis + vagin itis panel , vagin al natalia albicans, MARTA NEGATI VE negati ve Not Available [facility] ([facility]) [address] [facility], [place], [address], 02/19/2015 20:16:32 02/15/20 15 02/17/2015 bacte rial vagin osis + vagin itis panel , vagin al natalia glabrata, MARTA NEGATI VE negati ve THIS TEST WAS DEVEL OPED AND ITS PERFO RMANC E MILADYS CTERI STICS DETER MINED BY [facility]. IT HAS NOT BEEN CLEAR ED OR APPRO RICARDO BY THE FOOD AND DRUG ADMIN ISTRA TION. THE FDA HAS DETER MINED THAT SUCH CLEAR ANCE OR APPRO HUNTER IS NOT NECES AP. Not Available [facility] ([facility]) [address] [facility], [place], [address], 02/19/2015 20:16:32 02/15/20 15 02/17/2015 bacte rial vagin osis + vagin itis panel , vagin al trich vag by MARTA NEGATI VE negati ve Not Available [facility] ([facility]) [address] [facility], [place], [address], 02/19/2015 20:16:32 02/15/20 15 02/18/2015 bacte rial vagin osis + vagin itis panel , vagin al atopobium vaginae LOW - 0 score Not Available [facility] ([facility]) [address] [facility], [place], [address], 02/19/2015 20:16:32 02/15/20 15 02/18/2015 bacte rial vagin osis + vagin itis panel , vagin al bvab 2 MODERA TE - 1 score Not Available [facility] ([facility]) [address] [facility], [place], [address], 02/19/2015 20:16:32 02/15/20 15 02/18/2015 bacte rial vagin osis + vagin itis panel , vagin al megasphaera 1 LOW - 0 score CALCU LATE TOTAL SCORE BY TOSHA Lutz THE 3 INDIV IDUAL BACTE RIAL VAGIN OSIS (BV) MARKE R SCORE S TOGET HER. TOTAL SCORE IS INTER PRETE D FOLLO WS: TOTAL SCORE 0-1: INDIC ATES THE ABSEN CE OF BV. TOTAL SCORE 2: INDET ERMIN ATE FOR BV. ADDIT IONAL CLINI GERA DATA SHOUL D BE EVALU ATED TO ESTAB BULMARO A DIAGN OSIS. TOTAL SCORE 3-6: INDIC ATES THE PRESE NCE OF BV. THIS TEST WAS DEVEL OPED AND ITS PERFO RMANC E MILADYS CTERI STICS DETER MINED BY [facility]. IT HAS NOT BEEN CLEAR ED OR APPRO RICARDO BY THE FOOD AND DRUG ADMIN ISTRA TION. THE FDA HAS DETER MINED THAT SUCH CLEAR ANCE OR APPRO HUNTER IS NOT NECES AP. Not Available [facility] ([facility]) [address] [facility], [place], [address], 02/19/2015 20:16:32 02/15/20 15 02/19/2015 bacte rial vagin osis + vagin itis panel , vagin al chlamydia trachomatis, MARTA NEGATI VE negati ve Not Available [facility] ([facility]) [address] [facility], [place], [address], 02/19/2015 20:16:32 02/15/20 15 02/19/2015 bacte rial vagin osis + vagin itis panel , vagin al neisseria gonorrhoeae, MARTA NEGATI VE negati ve Not Available [facility] ([facility]) [address] [place], [address], 02/19/2015 20:16:32 02/15/20 15 02/16/2015 HSV (1+2) DNA, qual, PCR, unspe cifie d speci men hsv 1 MARTA NEGATI VE negati ve Not Available [facility] ([facility]) [address] [place], [address], 02/19/2015 20:16:33 02/15/20 15 02/16/2015 HSV (1+2) DNA, qual, PCR, unspe cifie d speci men hsv 2 MARTA NEGATI VE negati ve Not Available [facility] ([facility]) [address] [place], [address], 02/19/2015 20:16:33 03/06/20 16 03/07/2016 CBC w/ auto diff WBC 5.8 x10e3 /uL 3.4-10 .8 Not Available [facility] ([facility]) [address] [place], [address], 03/07/2016 08:27:08 03/06/20 16 03/07/2016 CBC w/ auto diff RBC 4.73 x10e6 /uL 3.77-5 .28 Not Available [facility] ([facility]) [address] [place], [address], 03/07/2016 08:27:08 03/06/20 16 03/07/2016 CBC w/ auto diff hemoglobin 14.8 g/dL 11.1-1 5.9 Not Available [facility] ([facility]) [address] [place], [address], 03/07/2016 08:27:08 03/06/20 16 03/07/2016 CBC w/ auto diff hematocrit 43.9 % 34.0-4 6.6 Not Available [facility] ([facility]) [address] [facility], [place], [address], 03/07/2016 08:27:08 03/06/20 16 03/07/2016 CBC w/ auto diff MCV 93 fL 79-97 Not Available [facility] ([facility]) [address] [facility], [place], [address], 03/07/2016 08:27:08 03/06/20 16 03/07/2016 CBC w/ auto diff MCH 31.3 pg 26.6-3 3.0 Not Available [facility] ([facility]) [address] [facility], [place], [address], 03/07/2016 08:27:08 03/06/20 16 03/07/2016 CBC w/ auto diff MCHC 33.7 g/dL 31.5-3 5.7 Not Available [facility] ([facility]) [address] [facility], [place], [address], 03/07/2016 08:27:08 03/06/20 16 03/07/2016 CBC w/ auto diff RDW 14.2 % 12.3-1 5.4 Not Available [facility] ([facility]) [address] [facility], [place], [address], 03/07/2016 08:27:08 03/06/20 16 03/07/2016 CBC w/ auto diff platelets 300 x10e3 /uL 150-37 9 Not Available [facility] ([facility]) [address] [facility], [place], [address], 03/07/2016 08:27:08 03/06/20 16 03/07/2016 CBC w/ auto diff neutrophils 51 % Not Available [facility] ([facility]) [address] [facility], [place], [address], 03/07/2016 08:27:08 03/06/20 16 03/07/2016 CBC w/ auto diff lymphs 38 % Not Available [facility] ([facility]) [address] [facility] [place], [address], 03/07/2016 08:27:08 03/06/20 16 03/07/2016 CBC w/ auto diff monocytes 9 % Not Available [facility] ([facility]) [address] [facility] [place], [address], 03/07/2016 08:27:08 03/06/20 16 03/07/2016 CBC w/ auto diff eos 1 % Not Available [facility] ([facility]) [address] [facility] [place], [address], 03/07/2016 08:27:08 03/06/2003/07/2016 CBC w/ auto diff basos 1 % Not Available [facility] ([facility]) [address] [place], [address], 03/07/2016 08:27:08 03/06/20 16 03/07/2016 CBC w/ auto diff immature cells REAGENT TENDER Not Available [facility] ([facility]) [address] [facility], [place], [address], 03/07/2016 08:27:08 03/06/20 16 03/07/2016 CBC w/ auto diff neutrophils (absolute) 3.0 x10e3 /uL 1.4-7. 0 Not Available [facility] ([facility]) [address] [place], [address], 03/07/2016 08:27:08 03/06/2003/07/2016 CBC w/ auto diff lymphs (absolute) 2.2 x10e3 /uL 0.7-3. 1 Not Available [facility] ([facility]) [address] [place], [address], 03/07/2016 08:27:08 03/06/20 16 03/07/2016 CBC w/ auto diff monocytes(ab solute) 0.5 x10e3 /uL 0.1-0. 9 Not Available [facility] ([facility]) [address] [facility], [place], [address], 03/07/2016 08:27:08 03/06/20 16 03/07/2016 CBC w/ auto diff eos (absolute) 0.1 x10e3 /uL 0.0-0. 4 Not Available [facility] ([facility]) [address] [facility], [place], [address], 03/07/2016 08:27:08 03/06/20 16 03/07/2016 CBC w/ auto diff baso (absolute) 0.0 x10e3 /uL 0.0-0. 2 Not Available [facility] ([facility]) [address] [facility], [place], [address], 03/07/2016 08:27:08 03/06/20 16 03/07/2016 CBC w/ auto diff immature granulocytes 0 % Not Available [facility] ([facility]) [address] [facility], [place], [address], 03/07/2016 08:27:08 03/06/20 16 03/07/2016 CBC w/ auto diff immature grans (abs) 0.0 x10e3 /uL 0.0-0. 1 Not Available [facility] ([facility]) [address] [facility], [place], [address], 03/07/2016 08:27:08 03/06/2003/07/2016 CBC w/ auto diff NRBC REAGENT TENDER Not Available [facility] ([facility]) [address] [facility], [place], [address], 03/07/2016 08:27:08 03/06/2003/07/2016 CBC w/ auto diff hematology comments: REAGENT TENDER Not Available [facility] ([facility]) [address] [facility], [place], [address], 03/07/2016 08:27:08 03/06/20 16 03/07/2016 CMP, serum or plasm a glucose, serum 87 mg/dL 65-99 Not Available [facility] ([facility]) [address] [facility] [place], [address], 03/07/2016 08:27:08 03/06/20 16 03/07/2016 CMP, serum or plasm a BUN 6 mg/dL 6-20 Not Available [facility] ([facility]) [address] [place] [place], [address], 03/07/2016 08:27:08 03/06/20 16 03/07/2016 CMP, serum or plasm a creatinine, serum 0.81 mg/dL 0.57-1 .00 Not Available [facility] ([facility]) [address] [place] [place], [address], 03/07/2016 08:27:08 03/06/20 16 03/07/2016 CMP, serum or plasm a eGFR if nonafricn AM 92 mL/mi n/1.7 3 >59 Not Available [facility] ([facility]) [address] [facility] [place], [address], 03/07/2016 08:27:08 03/06/20 16 03/07/2016 CMP, serum or plasm a eGFR if africn AM 106 mL/mi n/1.7 3 >59 Not Available [facility] ([facility]) [address] [facility] [place], [address], 03/07/2016 08:27:08 03/06/20 16 03/07/2016 CMP, serum or plasm a BUN/creatini ne ratio 7 8-20 below low normal Not Available [facility] ([facility]) [address] [facility] [place], [address], 03/07/2016 08:27:08 03/06/20 16 03/07/2016 CMP, serum or plasm a sodium, serum 142 mmol/ L 134-14 4 Not Available [facility] ([facility]) [address] [facility] [place], [address], 03/07/2016 08:27:08 03/06/2003/07/2016 CMP, serum or plasm a potassium, serum 4.1 mmol/ L 3.5-5. 2 Not Available [facility] ([facility]) [address] [facility] [place], [address], 03/07/2016 08:27:08 03/06/2003/07/2016 CMP, serum or plasm a chloride, serum 102 mmol/ L 97-108 Not Available [facility] ([facility]) [address] [facility] [place], [address], 03/07/2016 08:27:08 03/06/2003/07/2016 CMP, serum or plasm a carbon dioxide, total 22 mmol/ L 18-29 Not Available [facility] ([facility]) [address] [facility] [place], [address], 03/07/2016 08:27:08 03/06/2003/07/2016 CMP, serum or plasm a calcium, serum 9.2 mg/dL 8.7-10 .2 Not Available [facility] ([facility]) [address] [facility] [place], [address], 03/07/2016 08:27:08 03/06/2003/07/2016 CMP, serum or plasm a protein, total, serum 7.5 g/dL 6.0-8. 5 Not Available [facility] ([facility]) [address] [place] [place], [address], 03/07/2016 08:27:08 03/06/2003/07/2016 CMP, serum or plasm a albumin, serum 4.4 g/dL 3.5-5. 5 Not Available [facility] ([facility]) [address] [place] [place], [address], 03/07/2016 08:27:08 03/06/2003/07/2016 CMP, serum or plasm a globulin, total 3.1 g/dL 1.5-4. 5 Not Available [facility] ([facility]) [address] [place], [address], 03/07/2016 08:27:08 03/06/20 16 03/07/2016 CMP, serum or plasm a A/G ratio 1.4 1.1-2. 5 Not Available [facility] ([facility]) [address] [facility] [place], [address], 03/07/2016 08:27:08 03/06/20 16 03/07/2016 CMP, serum or plasm a bilirubin, total 0.6 mg/dL 0.0-1. 2 Not Available [facility] ([facility]) [address] [place], [address], 03/07/2016 08:27:08 03/06/20 16 03/07/2016 CMP, serum or plasm a alkaline phosphatase, S 75 IU/L 39-117 Not Available [facility] ([facility]) [address] [facility] [place], [address], 03/07/2016 08:27:08 03/06/20 16 03/07/2016 CMP, serum or plasm a AST (SGOT) 21 IU/L 0-40 Not Available [facility] ([facility]) [address] [place] [place], [address], 03/07/2016 08:27:08 03/06/20 16 03/07/2016 CMP, serum or plasm a ALT (SGPT) 13 IU/L 0-32 Not Available [facility] ([facility]) [address] [place] [place], [address], 03/07/2016 08:27:08 03/06/20 16 03/07/2016 lipid panel , serum cholesterol, total 207 mg/dL 100-19 9 above high normal Not Available [facility] ([facility]) [address] [facility] [place], [address], 03/07/2016 08:27:09 03/06/20 16 03/07/2016 lipid panel , serum triglyceride s 170 mg/dL 0-149 above high normal Not Available [facility] ([facility]) [address] [place] [place], [address], 03/07/2016 08:27:03/06/2003/07/2016 lipid panel , serum HDL cholesterol 71 mg/dL >39 ACCOR DING TO ATP-I II GUIDE LINES , HDL-C >59 MG/DL IS CONSI DERED A NEGAT JIMI RISK FACTO R FOR CHD. Not Available [facility] ([facility]) [address] [facility], [place], [address], 03/07/2016 08:27:03/06/2003/07/2016 lipid panel , serum VLDL cholesterol gera 34 mg/dL 5-40 Not Available [facility] ([facility]) [address] [place], [address], 03/07/2016 08:27:03/06/2003/07/2016 lipid panel , serum LDL cholesterol calc 102 mg/dL 0-99 above high normal Not Available [facility] ([facility]) [address] [place], [address], 03/07/2016 08:27:03/06/2003/07/2016 lipid panel , serum comment: REAGENT TENDER Not Available [facility] ([facility]) [address] [place], [address], 03/07/2016 08:27:03/06/2003/07/2016 lipid panel , serum LDL/HDL ratio 1.4 ratio _unit s 0.0-3. 2 LDL/H DL RATIO MEN WOMEN 1/2 AVG.R ISK 1.0 1.5 AVG.R ISK 3.6 3.2 2X AVG.R ISK 6.2 5.0 3X AVG.R ISK 8.0 6.1 Not Available [facility] ([facility]) [address] [place], [address], 03/07/2016 08:27:09 03/06/20 16 03/07/2016 testo stero ne, total , serum testosterone , serum 37 NG/dL 8-48 Not Available [facility] ([facility]) [address] [place], [address], 03/07/2016 08:27:09 03/06/20 16 03/07/2016 testo stero ne, total , serum comment: REAGENT TENDER Not Available [facility] ([facility]) [address] [place], [address], 03/07/2016 08:27:09 03/06/2003/07/2016 HbA1c (hemo globi n A1c), blood hemoglobin A1C 5.4 % 4.8-5. 6 PRE-D IABET ES: 5.7 - 6.4 DIABE KYLE: >6.4 GLYCE COLLEEN CONTR OL FOR ADULT S WITH DIABE KYLE: <7.0 Not Available [facility] ([facility]) [address] [place], [address], 03/07/2016 08:27:10 03/06/2003/07/2016 dhea- sulfa te, serum DHEA-sulfate 238.7 ug/dL 57.3-2 79.2 Not Available [facility] ([facility]) [address] [place], [address], 03/07/2016 08:27:10 03/06/2003/07/2016 TSH, serum or plasm a TSH 2.450 uIU/m L 0.450- 4.500 Not Available [facility] ([facility]) [address] [place], [address], 03/07/2016 08:27:11 03/06/2003/07/2016 uric acid, serum or plasm a uric acid, serum 5.0 mg/dL 2.5-7. 1 THERA PEUTI C TARGE T FOR GOUT PATIE NTS: <6.0 Not Available [facility] ([facility]) [address] [facility], [place], [address], 03/07/2016 08:27:12 03/06/20 16 03/08/2016 cultu re, urine urine culture, routine FINAL REPORT Not Available [facility] ([facility]) [address] [facility], [place], [address], 03/08/2016 06:05:36 03/06/20 16 03/08/2016 cultu re, urine result 1 COMMEN T MIXED UROGE NITAL SHELLEY LESS THAN 10,00 0 COLON IES/M L Not Available [facility] ([facility]) [address] [facility], [place], [address], 03/08/2016 06:05:36 03/06/20 16 03/08/2016 bacte rial vagin osis + vagin itis panel , vagin al trich vag by MARTA NEGATI VE negati ve Not Available [facility] ([facility]) [address] [facility], [place], [address], 03/10/2016 06:01:54 03/06/20 16 03/08/2016 bacte rial vagin osis + vagin itis panel , vagin al chlamydia trachomatis, MARTA NEGATI VE negati ve Not Available [facility] ([facility]) [address] [place], [address], 03/10/2016 06:01:54 03/06/20 16 03/08/2016 bacte rial vagin osis + vagin itis panel , vagin al neisseria gonorrhoeae, MARTA NEGATI VE negati ve Not Available [facility] ([facility]) [address] [place], [address], 03/10/2016 06:01:54 03/06/20 16 03/10/2016 bacte rial vagin osis + vagin itis panel , vagin al atopobium vaginae LOW - 0 score Not Available [facility] ([facility]) [address] [place], [address], 03/10/2016 06:01:54 03/06/20 16 03/10/2016 bacte rial vagin osis + vagin itis panel , vagin al bvab 2 LOW - 0 score Not Available [facility] ([facility]) [address] [facility], [place], [address], 03/10/2016 06:01:54 03/06/20 16 03/10/2016 bacte rial vagin osis + vagin itis panel , vagin al megasphaera 1 LOW - 0 score CALCU LATE TOTAL SCORE BY TOSHA Lutz THE 3 INDIV IDUAL BACTE RIAL VAGIN OSIS (BV) MARKE R SCORE S TOGET HER. TOTAL SCORE IS INTER PRETE D FOLLO WS: TOTAL SCORE 0-1: INDIC ATES THE ABSEN CE OF BV. TOTAL SCORE 2: INDET ERMIN ATE FOR BV. ADDIT IONAL CLINI GERA DATA SHOUL D BE EVALU ATED TO ESTAB BULMARO A DIAGN OSIS. TOTAL SCORE 3-6: INDIC ATES THE PRESE NCE OF BV. THIS TEST WAS DEVEL OPED AND ITS PERFO RMANC E MILADYS CTERI STICS DETER MINED BY [facility]. IT HAS NOT BEEN CLEAR ED OR APPRO RICARDO BY THE FOOD AND DRUG ADMIN ISTRA TION. THE FDA HAS DETER MINED THAT SUCH CLEAR ANCE OR APPRO HUNTER IS NOT NECES AP. Not Available [facility] ([facility]) [address] [facility], [place], [address], 03/10/2016 06:01:54 03/06/20 16 03/10/2016 bacte rial vagin osis + vagin itis panel , vagin al natalia albicans, MARTA NEGATI VE negati ve Not Available [facility] ([facility]) [address] [place], [address], 03/10/2016 06:01:54 03/06/20 16 03/10/2016 bacte rial vagin osis + vagin itis panel , vagin al natalia glabrata, MARTA NEGATI VE negati ve THIS TEST WAS DEVEL OPED AND ITS PERFO RMANC E MILADYS CTERI STICS DETER MINED BY [facility]. IT HAS NOT BEEN CLEAR ED OR APPRO RICARDO BY THE FOOD AND DRUG ADMIN ISTRA TION. THE FDA HAS DETER MINED THAT SUCH CLEAR ANCE OR APPRO HUNTER IS NOT NECELYSIA AP. Not Available [facility] ([facility]) [address] [place], [address], 03/10/2016 06:01:54 03/06/20 16 03/08/2016 HSV (1+2) DNA, qual, PCR, unspe cifie d speci men hsv 1 MARTA NEGATI VE negati ve Not Available [facility] ([facility]) [address] [place], [address], 03/10/2016 06:01:55 03/06/20 16 03/08/2016 HSV (1+2) DNA, qual, PCR, unspe cifie d speci men hsv 2 MARTA NEGATI VE negati ve Not Available [facility] ([facility]) [address] [facility], [place], [address], 03/10/2016 06:01:55 03/06/20 16 03/08/2016 cultu re, vagin al/re ctal, strep tococ cus group B strep gp B MARTA NEGATI VE negati ve CENTE RS FOR DISEA SE CONTR OL AND PREVE NTION (CDC) AND AMERI CAN CONGR ESS OF OBSTE TRICI ANS AND GYNEC OLOGI STS (ACOG ) GUIDE LINES FOR PREVE NTION OF PERIN ATAL GROUP B STREP TOCOC GERA (GBS) DISEA SE SPECI FY CO-CO LLECT ION OF A VAGIN AL AND RECTA L SWAB SPECI MEN TO MAXIM IZE SENSI TIVIT Y OF GBS DETEC TION. PER THE CDC AND ACOG, SWABB ING BOTH THE LOWER VAGIN A AND RECTU M SUBST ANTIA LLY INCRE ASES THE YIELD OF DETEC TION RODRI RED WITH SAMPL ING THE VAGIN A ALONE . PENIC ILLIN G, AMPIC ILLIN , OR CEFAZ TOMÁS ARE INDIC ATED FOR INTRA PARTU M PROPH YLAXI S OF PERIN ATAL GBS COLON IZATI ON. REFLE X SUSCE PTIBI LITY TESTI NG SHOUL D BE PERFO RMED PRIOR TO USE OF CLIND AMYCI N ONLY ON GBS ISOLA KYLE FROM PENIC ILLIN -TODD RGIC WOMEN WHO ARE CONSI DERED A HIGH RISK FOR ANAPH YLAXI S. TREAT MENT WITH VANCO MYCIN WITHO UT ADDIT IONAL TESTI NG IS WARRA NTED IF RESIS TANCE TO CLIND AMYCI N IS NOTED . Not Available [facility] ([facility]) [address] [facility], [place], [address], 03/10/2016 06:01:55 03/06/20 16 03/08/2016 pap, IG + HPV, cervi gera diagnosis: ZELDA KRAUSE FOR INTRA EPITH ELIAL LESIO N AND ELLE ORTEGA . Not Available [facility] ([facility]) [address] [place], [address], 03/11/2016 07:06:55 03/06/20 16 03/08/2016 pap, IG + HPV, cervi gera specimen adequacy: ZELDA Worthington SATIS FACTFlory ARCE FOR EVALU ATION . ENDOC ERVIC AL AND/O R SQUAM OUS METAP LASTI C CELLS (ENDO CERVI GERA COMPO NENT) ARE PRESE NT. Not Available [facility] ([facility]) [address] [place], [address], 03/11/2016 07:06:55 03/06/20 16 03/08/2016 pap, IG + HPV, cervi gera clinician provided ICD10: ZELDA Worthington Z01.4 11 Not Available [facility] ([facility]) [address] [place], [address], 03/11/2016 07:06:55 03/06/20 16 03/08/2016 pap, IG + HPV, cervi gera performed by: ZELDA BLANTON , CYTOT TOM Worthington (ASCP ) Not Available [facility] ([facility]) [address] [place], [address], 03/11/2016 07:06:55 03/06/20 16 03/08/2016 pap, IG + HPV, cervi gera . . Not Available [facility] ([facility]) [address] [place], [address], 03/11/2016 07:06:55 03/06/20 16 03/08/2016 pap, IG + HPV, cervi gera note: COMMEN T THE PAP SMEAR IS A SCREE ABILIO TEST DESIG BART TO AID IN THE DETEC TION OF SHAKEEL LIGNA NT AND MALIG NANT CONDI TIONS OF THE UTERI NE CERVI X. IT IS NOT A DIAGN OSTIC PROCE DURE AND SHOUL D NOT BE USED THE SOLE MEANS OF DETEC TING CERVI GERA CANCE R. BOTH FALSE -POSI TIVE AND FALSE -NEGA TIVE REPOR TS DO OCCUR . Not Available [facility] ([facility]) [address] [place], [address], 03/11/2016 07:06:55 03/06/20 16 03/08/2016 pap, IG + HPV, cervi gera test methodology: COMMEN T THIS LIQUI D BASED THINP REP(R ) PAP TEST WAS SCREE BART WITH THE USE OF AN IMAGE GUIDE Olga Lidia Hebert. Not Available [facility] ([facility]) [address] [place], [address], 03/11/2016 07:06:55 03/06/20 16 03/11/2016 pap, IG + HPV, cervi gera HPV aptima NEGATI VE negati ve THIS TEST DETEC TS FOURT EEN HIGH- RISK HPV TYPES (16/1 8/31/ 33/35 /39/4 5/ 51/52 /56/5 8/59/ 66/68 ) WITHO UT DIFFE RENTI ATION . Not Available [facility] ([facility]) [address] [place], [address], 03/11/2016 07:06:55 02/15/2002/13/2019 MAMMO , scree abilio, bilat eral No observ ation record ed. [facility] (Imaging) [address], [place], [address], 10/20/2020 12:34:37 02/15/20 19 02/13/2019 MAMMO , scree abilio, bilat eral No observ ation record ed. [facility] [address], [place], [address], 10/20/2020 12:34:38 Result Notes None recorded. Problems Name Problem SNOMED Code Status Onset Date Resolution Date Notes Provider Name and Address Organization Details Recorded Time Benign essential hypertension 7637652 Active 2018 Solange King MD Attn: Maranda lutz,[address] [place], [address], [facility] - [facility] 9 16:23:15 Excessive sweating 42161207 Active 2018 Solange King MD Attn: Maranda lutz,[address] [place], [address], [facility] - [facility] 9 16:23:51 Nicotine dependence 73003804 Active 2018 Solange King MD Attn: Maranda lutz,[address] [place], [address], [facility] - [facility] 9 16:23:59 Macromastia 123242391 Active 2018 Solange King MD Attn: Maranda lutz,[address] [place], [address], [place] - [facility] 9 16:24:15 Body mass index 30+ - obesity 125500818 Active 2018 Solange King MD Attn: Maranda lutz,[address] [place], [address], [facility] - [facility] 9 16:24:19 Bacterial vaginosis 717379395 Active Rhett jay, [place] - [facility] 17:47:22 Folliculitis 83861162 Active Rhett Recinos null, [place] - [facility] 6 17:47:22 Hypertensive disorder 48477966 Active Rhett Recinos null, [place] - [facility] 6 17:47:22 Acute lower urinary tract infection 642194707 Active Rhett Recinos null, [place] - [facility] 17:47:22 Smoker 83979968 Active Rhett Recinos null, [place] - [facility] 17:47:22 Depressive disorder 88226539 Active Rhett Recinos null, [place] - [facility] 17:47:22 Hypercholester olemia 38834659 Active Rhett jay, [place] - [facility] 6 10:53:30 Hyperlipidemia 23144602 Phil jay, [place] - [facility] 10:53:30 Problem Notes None recorded. Procedures Surgical History Date Name Laterality Status Provider Name and Address Organization Details Recorded Time 03/06/2016 Date of Last Pap Smear completed Bhavna Oviedo MA [facility] 10/19/2020 10:01:38 Imaging Results Imaging Date Name Status LastModified by Organiz ation Details LastModified Time 02/13/2019 MAMMO, screening, bilateral completed [facility] ([facility]) [address], [place], [address], 10/20/2020 12:34:37 02/13/2019 MAMMO, screening, bilateral completed [facility] [address] [facility] [address], [place], [address], 10/20/2020 12:34:38 Procedure Notes None recorded. Medical Equipment None Reported. Allergies Allergen ID Allergen Name Allergen Category Reaction Reaction Severity Criticality Documentation Date Start Date Code Code System Note Provider Name and Address Organization Details Recorded Time 270878 Product containin g angiotens in-conver ting enzyme inhibitor (product) medicatio n angioedem a mild Not available 02/05/2019 33337 009 SNOMED Not Available Not Available Not Available Medications Name Sig Start Date Stop Date Status Note LastModified by Organization Details LastModified Time metronidazo l gel 0.75%vagmet ronidazole vaginal 02/04 completed Not Available Not Available Not Available tramadol hcl tab 50mgtramado l hcl active Not Available Not Available Not Available penicilln vk tab 500mgpenici llin v potassium active Not Available Not Available No t Available multivitami n tablet TAKE 1 TABLET BY MOUTH EVERY DAY 02/04 completed Not Available Not Available Not Available tretinoin 0.1 % topical cream APPLY PEA SIZED AMOUNT TOPICALLY TO FACE AT NIGHT 02/04 completed Not Available Not Available Not Available bupropion HCl SR 150 mg tablet,12 hr sustained-r elease Take 1 tablet twice a day by oral route as directed for 30 days. 10/19 completed Not Available Not Available Not Available nicotine 14 mg/24 hr daily transdermal patch Apply 1 patch every day by transderm al route. 10/19 completed Not Available Not Available Not Available lisinopril 20 mg-hydrochl orothiazide 12.5 mg tablet Take 1 tablet every day by oral route. 02/05 completed Not Available Not Available Not Available hydroquinon e 4 % topical cream APPLY TO DARK SPOT TWICE A DAY FOR NO MORE THAN 8 WEEKS active Not Available Not Available No t Available metronidazo le 0.75 % (37.5 mg/5 gram) vaginal gel INSERT 1 APPLICATO R(S)FUL EVERY DAY BY VAGINAL ROUTE AT BEDTIME FOR 5 DAYS. 02/04 completed Not Available Not Available Not Available spironolact one 100 mg tablet TAKE 2 TABLETS BY MOUTH EVERY DAY active Not Available Not Available No t Available penicillin V potassium 500 mg tablet 07/29 completed Not Available Not Available Not Available amlodipine 5 mg tablet active Not Available Not Available Not Available tretinoin 0.05 % topical cream APPLY PEA SIZED AMOUNT TOPICALLY TO FACE EVERY NIGHT AT BEDTIME active Not Available Not Available No t Available tramadol 50 mg tablet 07/29 completed Not Available Not Available Not Available Vitamin tablet Take 1 tablet every day by oral route as directed. 07/29 completed Not Available Not Available Not Available amoxicillin 875 mg tablet 07/29 completed Not Available Not Available Not Available simvastatin 20 mg tablet Take 1 tablet every day by oral route. 07/29 completed Not Available Not Available Not Available nicotine 21 mg/24 hr daily transdermal patch Apply 1 patch every day by transderm al route. 02/05 completed Not Available Not Available Not Available clindamycin 2 % vaginal cream Insert 1 applicato rful every day by vaginal route for 5 days. 02/05 completed Not Available Not Available Not Available metronidazo le 0.75 % topical gel active Not Available Not Available Not Available nicotine 7 mg/24 hr daily transdermal patch Apply 1 patch every day by transderm al route. 02/05 completed Not Available Not Available Not Available oxycodone 5 mg tablet 02/05 completed Not Available Not Available Not Available nitrofurant oin monohydrate /macrocryst als 100 mg capsule TAKE 1 CAPSULE BY MOUTH TWICE DAILY FOR 7 DAYS 02/04 completed Not Available Not Available Not Available Calcium with Vitamin D 600 mg-10 mcg (400 unit) tablet Take 1 tablet twice a day by oral route. 02/04 completed Not Available Not Available Not Available 28 mg iron-800 mcg tablet TK 1 T PO QD 02/04 completed Not Available Not Available Not Available calcium 600 mg (as carbonate)- vitamin D3 20 mcg (800 unit) tablet Take 1 tablet twice a day by oral route for 30 days. 07/29 completed Not Available Not Available Not Available Vitamins Plus Low Iron 27 mg iron-1 mg tablet TAKE 1 TABLET BY MOUTH EVERY DAY 10/19 completed Not Available Not Available Not Available Xulane 150 mcg-35 mcg/24 hr transdermal patch Appy 1 patch to skin weekly 07/29 completed Not Available Not Available Not Available Slynd 4 mg (28) tablet Take 1 tablet(s) every day by oral route. active Not Available Not Available No t Available Vitals Date Recorded Body height Body mass index (BMI) Body weight Systolic blood pressure Diastolic blood pressure Provider Name and Address Organization Details Last Updated DateTime 02/14/2015 160.02 cm 31.4 kg/m2 00726.84 949 g 140 mm[Hg] 90 mm[Hg] Lani Cardona [place] - [facility] 5 10:40:49 Date Recorded Body height Body mass index (BMI) Body weight Body temperature Heart rate Oxygen saturation Oxygen saturation in Arterial blood by Pulse oximetry Systolic blood pressure Diastolic blood pressure Provider Name and Address Organization Details Last Updated DateTime 9 160.02 cm 32.8 kg/m2 41423.0 3 g 98 [degF] 84 /min 97 % 97 % 136 mm[Hg] 90 mm[Hg] Janey Almeida MA [facility] 9 15:32:26 Date Recorded Body height Body mass index (BMI) Body weight Provider Name and Address Organization Details Last Updated DateTime 10/19/2020 161.29 cm 27.2 kg/m2 24022.41 g Bhvana Oviedo MA [facility] 10/19/2020 09:58:33 Date Recorded Body mass index (BMI) Body weight Body height Systolic blood pressure Diastolic blood pressure Provider Name and Address Organization Details Last Updated DateTime 03/06/2016 30.3 kg/m2 57569.29 527 g 160.02 cm 164 mm[Hg] 110 mm[Hg] Cynthia Franco MA [facility] 6 12:21:56 Date Recorded Body height Body weight Body mass index (BMI) Heart rate Respiratory rate Body temperature Systolic blood pressure Diastolic blood pressure Provider Name and Address Organization Details Last Updated DateTime 6 160.02 cm 92739.5 6 g 28.9 kg/m2 75 /min 18 /min 98.1 [degF] 138 mm[Hg] 85 mm[Hg] Preethi Vasquez MA [facility] 6 10:17:22 Social History Question Answer Notes LastModified by Organizat ion Details LastModified Time Tobacco Smoking Status Current Every Day Smoker Lani Cardona MA [facility], [facility] 02/14/2015 10:32:39 Do You Have An Advance Directive? No [email or web address] Information not available 02/14/2015 What Is Your Level Of Alcohol Consumption? Occasional [email or web address] Information not available 02/14/2015 Is Blood Transfusion Acceptable In An Emergency? Yes [email or web address] Information not available 02/14/2015 What Is Your Level Of Caffeine Consumption? Occasional [email or web address] Information not available 02/14/2015 How Much Tobacco Do You Chew? None [email or web address] Information not available 02/14/2015 Are You Currently Employed? Yes [email or web address] Information not available 02/14/2015 What Type Of Diet Are You Following? REGULAR Information not available 02/14/2015 Do You Or Have You Ever Used E-cigarettes Or Vape? 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 With Others [email or web address] Information not available 02/14/2015 What Was The Date Of Your Most Recent Tobacco Screening? 10/19/2020 Information not available 10/19/2020 How Many Children Do You Have? 2 [email or web address] Information not available 02/14/2015 Performs Monthly Self-breast Exam? Yes [email or web address] Information no t available 02/14/2015 What Is Your Relationship Status? Single Information not available 02/14/2015 Seat Belts Used Routinely Yes [email or web address] Information not available 02/14/2015 Are You Sexually Active? No Information not available 02/14/2015 At What Age Did You Start Smoking Tobacco? 29 [email or web address] Information not available 02/14/2015 Do You Or Have You Ever Used Smokeless Tobacco? Never Used Smokeless Tobacco Information not available 10/19/2020 How Much Tobacco Do You Smoke? 0.5 PPD [email or web address] Information not available 02/14/2015 General Stress Level Medium [email or web address] Information not available 02/14/2015 Do You Use Sunscreen Routinely? No [email or web address] Information not available 02/14/2015 Has Tobacco Cessation Counseling Been Provided? Yes Information not available 02/05/2019 On What Date Was Tobacco Cessation Counseling Provided? 02/05/2019 Information not available 02/05/2019 How Many Years Have You Smoked Tobacco? 15 Information not available 10/19/2020 Sex: Unknown Functional Status Question Answer Note LastModified by Organizat ion Details LastModified Time What is your exercise level? Occasional Information not available 02/14/2015 Mental Status None recorded. Family History Nothing Reported. Medical History Condition Response Coronary Artery Disease N Kidney Cyst N Blood Diseases N Hyperthyroidism N Blood Transfusion N MRSA N Blood disorders N Emphysema N Blood Clots N COPD N Depression N Pneumonia N Premature N Peripheral Arterial Disease N Edema N TIA N Headaches/Migraines N Anxiety Disorder N Obesity N Infertility N Polyps N Acid Reflux (GERD) N Hematuria N Stroke N Neck Injury N Polio N Hospital Admission other than N Neurologic Disorder N Other Sleep Disorders N Rheumatoid Arthritis N Fibromyalgia N Abdominal Aortic Aneurysm Repair N Kidney Disease N Heart Conditions N Heart Disease/Heart Problems N Hospitalizations N Brain Tumors N Acne Y Skin Problems N Eating Disorder N Meningitis N Constipation N Tuberculosis N Cerebral Palsy N Myocardial Infarction N Asthma N Substance Abuse N Peripheral Vascular Disease N Vertigo N Sleep Disorder N Cirrhosis N Pulmonary Embolism N Chicken Pox N Hematologic Disease N Flomax Use Past or Present N Anxiety/Depression N Thyroid Disease N Colon Cancer N Lung Disease N Glaucoma N Developmental or Behavioral Disorders N Bipolar N Pacemaker N Diverticulitis/Diverticulosis N Orthopedic Problems N Anesthesia Complications N Orthotics N Head Injury/Concussion N Congenital Anomalies N Owen Bite N Chronic Kidney Disease N Endometriosis N Liver Disease N Schizophrenia N Dialysis N Speech Delay N Chronic Obstructive Pulmonary Disease N Parkinson's Disease N Thyroid Problems N GI Problems N Developmental Delay N Anemia N Multiple Sclerosis N Immune System Disorder N Colon Polyps N Heart Attack ([place]) N Diabetes N Cardiomyopathy N Blood Transfusions N Heart Problems/Murmur N Eye Trauma N Congestive Heart Failure (CHF) N Valvular Heart Disease N Hyperlipidemia N Double Vision N Abuse/Domestic Violence N Hepatitis B N Lupus N Epilepsy/Seizures N Reflux/GERD N Aneurysm N Heart Disease N Bronchitis N Pre-Eclampsia N Hypertension N Heart Failure N Other N Gout N High Blood Pressure N Atrial Fibrillation N Kidney Stones N Head Trauma/Injury N Congenital Heart Disease N Spine Problems N Gastrointestinal Disease N Lung Mass N Sinusitis N Obstructive Sleep Apnea N Muscle, Joint, or Bone Problems N Autoimmune disease N Vision or Eye Problems N Arthritis N Blood Clot N Cancer N Seasonal allergies N Leg or Foot Ulcers N Raynaud's Disease N Aortic Aneurysm N Arrhythmia N Headaches N Heart Problems N Ambloypia N Ear or Hearing Problems N Hyperparathyroidism N Migraines N Artificial Joints N Kidney or Bladder Problems N NSAID Use N Encephalitis N PTSD N Ulcers N Prostate Hypertrophy N Bleeding Disorder N AIDS/HIV N Urinary Tract Infection N Back Problems N Allergies N Atrial Flutter N GERD/Reflux N Hepatitis N Autism Spectrum Disorder (ASD) N Breast Cancer N Hernia N Hypothyroidism N Breast Problem N Genitourinary Disease N Deep Vein Thrombosis N Varicose Veins N Cystic Fibrosis N Hearing Loss N Developmental Problems N Carotid Disease N Vitamin D Deficiency N ADHD N Bladder or Kidney Problems N High Cholesterol N [place] N Valvular Abnormalities N Psychiatric/Mental Health Condition N Organ Transplant N Foot Deformity N Allergies/Hayfever N Dyslipidemia N Hyponatremia N Diabetic Eye Disease N Osteoporosis/Osteopenia N Back Pain N Proteinuria N Mental Illness N Neurological Problems N Ovarian Cancer N Bedwetting N Seizures/Epilepsy N Kidney Failure N Ocular trauma N Diverticulitis N Dementia N Sleep Apnea N Mental Problems N Warfarin Management N Osteoporosis N Gynecological History Statement/Question Response Abnormal Pap Y Flow Moderate On BCP's at Conception? N STIs/STDs Y HPV Vaccine N Duration of Flow (days) 5 Age at Menarche 13 Current Control Method None Age at First Child 20 Frequency of Cycle (Q days) 14 Sexually Active? N Menses Monthly Y Date of Last Pap Smear 03/06/2016 Sexual Problems? N LMP Approximate Desired Control Method Unknown Obstetrics History GPAL:G 2 P 2 0 0 2 Type Value Multiple Births 0 Full Term 2 Induced 0 Spontaneous 0 Premature 0 Living 2 Ectopics 0 Total 2 Immunizations Vaccine Type Date Status Note Provider Nam e and Address Organization Details Recorded Time Influenza, high-dose, trivalent, PF 09/07/2014 completed Rhett Recinos [place], [place] - [facility] 02/14/2015 10:58:45 Past Encounters Encounter ID Performer Location Encounter Start Date Encounter Closed Date Diagnosis/Indication Diagnosis SNOMED-CT Code Diagnosis ICD10 Code Diagnosis Note [id number] Rhett Hawk (COMPUTER OPERATIONS SPECIALIST) [address] [place] [address] 02/14/2015 09:58:53 02/14/2015 11:00:57 Gynecologic examination 96024944 Bacterial vaginosis 648998134 Folliculitis 40668805 [id number] Rhett Hawk (COMPUTER OPERATIONS SPECIALIST) [address] [place] [address] 03/06/2016 11:24:23 03/06/2016 17:48:41 Bacterial vaginosis 147274582 N76.0 Gynecologi c examination 02280895 Z01.411 Folliculitis 72987182 L7 3.9 discussed adding 1/4 cup of bleach to bathwater in order to decolonize skin. Family alli nning surveillance 037300156 Z30.09 Hypertensive disorder 38 918513 I10 Screening mammography 24 984809 Z12.31 Acute lowe r urinary tract infection 914653160 N39.0 Smoker 15560637 F17.200 Depressive disorder 3548 9007 F32.9 [id number] MOISÉS Ferrari (Adult Med) [address] [place] [address] 07/29/2016 09:49:32 07/29/2016 11:03:27 Hypercholesterolemia 17901361 E78.2 LDL: 102DIscuss ed staying away from greasy foods, deep fried foods, red meats Depressive disorder 3542 3502 F32.0 Advised to make an appointmen t with a counselor on her way out of the office today Hypertensive disorder 38 579819 I10 138/85 today in officeWill switch to amlodipine 5mg QDDiscusse d that nicotine, caffeine, salt can increase her BPAdvised to exercise 3 minutes/da y 5 days/week Smoker 75836896 F17.200 1/2ppd x 16 yearsReque sting help quittingAd vised to begin with not smoking in her car and in her homeRTC 2 weeks Macromastia 769479916 N6 2 Will begin with PT referral and breast surgery referralPo ssible candidate for breast reduction surgery Chronic back pain 652055 002 M54.9 Body mass index 25-29 - overweight 093955891 Z68.29 Advised to exercise 3 minutes/da y 5 days/weekA dvised to not drink her caloriesAd vised to stay away from salty and high fat foods Adult heal th examination 219157722 Z00.01 40YO AA female here to establish care. Patient is here because of HTN. 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 E78.9 Macromastia 598889142 N6 2 Body mass index 30+ - obesity 668973442 Z68.30 [id number] Rhett Recinos Kenn (COMPUTER OPERATIONS SPECIALIST) [address] [place] [address] 10/19/2020 07:57:54 10/20/2020 12:51:38 Acute urinary tract infection 660025205 N39.0 Irregular periods 260885 07 N92.6 Benign ess ential hypertension 2731470 I10 Bacterial vaginosis 4197 38489 N76.0 Family alli nning surveillance 939249050 Z30.09 Screening for malignant neoplasm of breast 344119333 Z12.39 Health Concerns Section Related Observation LastModified by Organization Detai ls LastModified Time None Recorded Concern Status LastModified by Organization Details LastModified Time None Recorded Advance Directives Directive N: Payers Encounter Date Sequence Insurance Name Policy Number Policy Bruenr Covered Member ID Bruner Member ID Guarantor Name 02/14/2015 1 [facility] (MEDICAID HMO) Fiona Mike [id number] Fiona Mike 03/06/2016 1 [facility] (MEDICAID HMO) Fiona Mike [id number] Fiona Mike 07/29/2016 1 [facility] (MEDICAID HMO) Fiona Mike [id number] Fiona Mike 02/05/2019 1 [facility] PRIOR TO 03/29/2021 (MEDICAID REPLACEMENT - HMO) Fiona Mike [id number] Fiona Mike 10/19/2020 1 [facility] PRIOR TO 03/29/2021 (MEDICAID REPLACEMENT - HMO) Fiona Mike [id number] Fiona Mike Notes Date Note Type Note Provider Name and Address Organization Details Recorded Time 6 text/html Annual GYNReported bypatient.History:no change in interval history; recurrent folliculitis in genital region x2 years Menstrual cycle:Normal menses Urinary symptoms:No hematuria; No incontinence Vulva:No genital lesion Vagina:Foul-smelling;White Breast:No breast pain; No breast lump; No nipple discharge Sexual complaints:No sexual complaints; No pain during intercourse; Normal libido Menopausal Symptoms:No menopausal symptoms; Normal vaginal lubrication Psychological symptoms:No depression; No anxiety; No PMDD Preventive measures:Encourage self breast examination; Encourage regular exercise; Encourage regular mammograms starting age 41Notes:40 yo F 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 Rhett jay [place] - [facility] 03/06/2016 17:47:34 6 text/html Back PainReported bypatient.Location:pain is not radiating Severity:worsening Onset/Timing:recurrent episode Context:overuse; large breasts Alleviating Factors:rest; relieved by changing position Aggravating Factors:movement/positioni ng Associated Symptoms:no fever; no weak limbs; no numbness of the legs/feet; no tingling; no incontinence; no shortness of breathNotes:patient states that she has large breasts and that they are now beginning to cause her worsening back pain and she would like this evaluatedHypertension F/UReported bypatient.Associated Symptoms:no dizziness; no lightheadedness; no chest pain; no shortness of breath; no palpitations; no edema; no calf pain with exertion Lifestyle:not exercising regularly;high salt intake; 1/2ppd smoker x 16 years - patient here for help quittingNotes:Patient states that she started taking simvastatin and the lisinopril on the same day and began to have facial and tongue swelling - she stopped the medication immediately and took benadryl and the swelling went down Here to establish care. Virginia Graham PA-C Attn: Accounting[address] [place], [address], [facility] 07/29/2016 11:18:49 9 text/html The medicine I was taking which makes my lips swell up I need my referrals over again I am trying to get a breast reduction My back pain 43 y/o WF who presents to establish care, she was seen at this clinic in 2015 by a different provider. PMHX. HTN, Macromastia, Tobacco, Hyperlipidemia Solange King MD Attn: Accounting[address] [place], [address], [facility] 02/05/2019 16:25:32 1 text/html Abnormal BleedingReported bypatient.Associated Symptoms:no dysmenorrhea; no pelvic pain; no abdominal pain; no dyspareunia; no fatigue; no dizziness; no anemia/iron supplements; no shortness of breath; no CP/palpitations; no bloating; no change in bowel function; no urinary symptoms; no PMS; no vaginal discharge; no vaginal itching/irritation 44 y/o with history of UTI, BV, MDD, and dyslipidemia would like to discuss her abnormal periods and dark urine. She also requests medication refills for her spironolactone until she can be seen by Dr. King. Rhett HoltJorjemimi jay, [facility] 10/20/2020 12:34:53 OBGyn Episode Ob Episode Information Episode Created Date Number of Fetuses Patient Bloodtype Patient rh Status Prepregnancy Weight lbs Domestic Partner Domestic Partner Phone Father Name Taker Off Hemp Fiber Status 02/15/20 15 1 CLOSED Fetus Data First Name Last Name Admitted to NICU Weight (g) Sex Living Outcome Pediatric Complications Fetus ID Race Codes Race Delivery Type 2893.91 696 M Full Term Vaginal Arnie Calculation Initial Arnie Date Initial Exam Date Initial Exam Provider Initial Ultrasound Date Last Menstrual Period Date Ultra Sound Weeks Gestation 0 Eighteen To Twenty Week Arnie Update Ultra Sound Date Fundal Height At Umbil Quickening Date Ultra Sound Latest Weeks Gestation Final Arnie Confirmed By Final Arnie Confirmed Date Final Arnie Date Ultra Sound Latest Days Gestation 0 0 Menstrual History Last Menstrual Date Menses Monthly On Bcp Conception Prior Menses Frequency Hcg Plus Date Menarche Onset Age Delivery Information Delivery Date Delivery Type Labor Anesthesia Weeks Gestation Incision Type Labor Labor Length Hrs Delivered By Post Complications Tubal Sterilization Discharge Date Comments 5 None 39 Caroline Hutchison Discharge Information Feeding Method Contraceptive Method Maternal HG B and HCT Levels Ob Episode Information Episode Created Date Number of Fetuses Patient Bloodtype Patient rh Status Prepregnancy Weight lbs Domestic Partner Domestic Partner Phone Father Name Taker Off Hemp Fiber Status 02/15/20 15 1 CLOSED Fetus Data First Name Last Name Admitted to NICU Weight (g) Sex Living Outcome Pediatric Complications Fetus ID Race Codes Race Delivery Type 2807.73 448 M Full Term Vaginal Arnie Calculation Initial Arnie Date Initial Exam Date Initial Exam Provider Initial Ultrasound Date Last Menstrual Period Date Ultra Sound Weeks Gestation 0 Eighteen To Twenty Week Arnie Update Ultra Sound Date Fundal Height At Umbil Quickening Date Ultra Sound Latest Weeks Gestation Final Arnie Confirmed By Final Arnie Confirmed Date Final Arnie Date Ultra Sound Latest Days Gestation 0 0 Menstrual History Last Menstrual Date Menses Monthly On Bcp Conception Prior Menses Frequency Hcg Plus Date Menarche Onset Age Delivery Information Delivery Date Delivery Type Labor Anesthesia Weeks Gestation Incision Type Labor Labor Length Hrs Delivered By Post Complications Tubal Sterilization Discharge Date Comments 6 None 39 Rick Discharge Information Feeding Method Contraceptive Method Maternal HG B and HCT Levels
== END 2024-11-19 07:38 | disposition home or self-care (01) ==
LOC: ANHIMG 07:39
PROVIDERS: PCP Family Medicine; Visit Provider Obstetrics & Gynecology
DX: Z12.31 Encounter for screening mammogram for malignant neoplasm of breast (principal)
CPT/HCPCS: 77063; 77067

== ENCOUNTER 2025-02-07 07:30 | Outpatient (RCR) | payer OTHER, SELFPAY ==
--- NOTE | 2025-01-13 08:59 | OPREHPOC ---
Outpatient Therapy Plan of Care This is a Multidisciplinary Plan of Care that may contain components documented by all disciplines (PT, OT, and ST.) PT Problem 1 PT Problem #1 Knowledge Deficit PT Goal 1 Goal / Goal Update *independent with HEP Target Visit 8 PT Problem 2 PT Problem #2 Pain PT Goal 1 Goal / Goal Update * pt report pain at worst rating of 4/10 Target Visit 8 PT Problem 3 PT Problem #3 Impaired Strength PT Goal 1 Goal / Goal Update increase strength of trunk and hips, to improve stability to spine single leg standing x 20 seconds with good stability 1* R 2* L 3* thoracic-scapular strength of 4+/5 4* R and L hip extension strength 4+/5 5* R and L hip abduction strength 4+/5 Target Visit 8
--- NOTE | 2025-01-13 08:59 | PTOPEVAL1 ---
Assessment and note entered by Tabitha Ricardo, PT Evaluation Information Assessment Status Evaluation ICD-10 Condition Codes (PT) Pain in Thoracic Spine M54.6,Pain in low back M54. 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 She reports chronic pain in back with recent increase. Self assessment Oswestry rating of 64% limitation in activity level. Sitting, standing and sleeping tolerances are limited due to pain. She has a referral to plastic surgeon for breast reduction. With the evaluation: pain increase with standing trunk flexion > extension pain, supine R and L hip IR motion; weakness of trunk and hips, gross 4 to 4-/5, with unsteady single leg standing for 3 seconds bilateral; poor standing posture with flat thoracic spine and increase lumbar lordosis. Skilled PT services are indicated for modalities to decrease pain, therapeutic exercises to increase trunk and hip strength with education for HEP and body mechanics/posture. Plan of Care Interventions Electrical Stimulation,Hot Pack/Cold Pack,Manual Therapy,Mechanical Traction,Neuro Re-education, Patient/Caregiver Education,Therapeutic Activities ,Therapeutic Exercise,Ultrasound,Other Other Interventions taping PT Services Indicated Yes Treatment Frequency and 1-2x/wk for 8 visits Duration These treatments will address the objective and functional deficits as defined above. The patient will be advanced safely and appropriately in order for the patient to progress towards his/her prior level of function. Additional exercises will be introduced and as well as a comprehensive home exercise program upon discharge, if needed, ?to ensure carryover of functional gains achieved in the clinic. This treatment plan has been reviewed and agreement upon by the patient.
--- NOTE | 2025-02-11 08:31 | PCPTNOTE ---
pt did not show for today's reeeval. Called pt, she stated she had a family emergency this morning and forgot about her appt. she will call to reschedule the appt.
--- NOTE | 2025-03-30 14:31 | PCPTNOTE ---
Physical Therapy Discharge 03-30-25 Dr. Hao Guzmán has received 7 PT sessions, from January 13 to February 07, for the diagnosis of thoracic pain. She then stopped attending therapy. Discharge PT services. The goals were not addressed.
== END 2025-03-29 15:11 | disposition home or self-care (01) ==
LOC: ANHPT 07:30
PROVIDERS: PCP Family Medicine; Visit Provider Family Medicine
DX: M54.6 Pain in thoracic spine (principal)
CPT/HCPCS: 97014; 97110; 97140; 97161; 97530; G0283